=== PATIENT | male | born 2000 | race Caucasian/White ===

== ENCOUNTER 2019-03-19 06:13 | Emergency (ER) | payer SELFPAY ==
[~2019-03-19] VITALS: Ht 170.2 cm; Wt 54.4 kg
[2019-03-19 07:09] LABS: HEMATOCRIT 41 % (40-54); HEMOGLOBIN 14.5 G/DL (13.3-17.7); MEAN CORPUSCULAR HEMOGLOBIN 31 PG (25-34); MEAN CORPUSCULAR HGB CONC 35 G/DL (32-36); MEAN CORPUSCULAR VOLUME 87 FL (80-99); MEAN PLATELET VOLUME 10.9 FL (7.4-10.4); PLATELET COUNT 230 10^3/uL (130-400); RED CELL DISTRIBUTION WIDTH 12.5 % (10.0-14.5); WHITE BLOOD COUNT 6.7 10^3/uL (4.3-11.0)
[2019-03-19 07:10] LABS: BASOPHILS % (AUTO) 0 % (0-10); EOSINOPHILS # (AUTO) 0.1 10^3/uL (0.0-0.3); EOSINOPHILS % (AUTO) 2 % (0-10); LYMPHOCYTES # (AUTO) 2.1 X 10^3 (1.0-4.0); LYMPHOCYTES % (AUTO) 31 % (12-44); MONOCYTES # (AUTO) 0.7 X 10^3 (0.0-1.0); MONOCYTES % (AUTO) 10 % (0-12); NEUTROPHILS # (AUTO) 3.8 X 10^3 (1.8-7.8); NEUTROPHILS % (AUTO) 57 % (42-75)
--- NOTE | 2019-03-19 07:19 | ED Cardiac General ---
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 At 1800 yesterday, he states he went to the ER in [place] d/t "not feeling right." Patient states the physician informed him that his potassium was low and advised him not to take any more caffeine pills, then discharged him to home. He states he got home from work around 0430 and was attempting to go to sleep when his chest became tight. Source: patient, family Exam Limitations: no limitations History of Present Illness Date Seen by Provider: Mar 19, 2019 Time Seen by Provider: 06:45 Initial Comments Patient is a 18-year-old male presents with episodic left-sided chest pain draining to left shoulder. Symptoms began last evening while in bed. Comfort is described as tightness and loss less than 2 minutes with multiple episodes per hour. Episodes are not sure associated with nausea, shortness of breath, or abdominal pain. No vomiting, hematemesis, or coffee-ground emesis. Patient states he took 1200 mg of caffeine earlier in yesterday afternoon. He developed palpitations and was seen at outside emergency department where he had basic labs, EKG and imaging studies performed. Patient states that he was told his potassium was low. He was given a GI cocktail and his potassium was replaced and he was discharged home at that time. Patient denies drugs or alcohol since discharge. He states he has not taken any additional caffeine pills. No other acute symptoms or complaints. Timing/Duration: 1-3 hours Severity: mild Location: substernal, other Activities at Onset: none NTG SL MANAGER CULINARY: No ASA po MANAGER CULINARY: No Associated Systoms: Chest Pain Allergies and Home Medications Allergies Coded Allergies: No Known Drug Allergies (Unverified , 03/19/19) Home Medications Famotidine 20 Mg Tablet, 20 MG PO BID Prescribed by: EVANGELINA ADAMSON on 03/19/19 7079 Patient Home Medication List Home Medication List Reviewed: Yes Review of Systems Review of Systems Constitutional: see HPI EENTM: See HPI Respiratory: See HPI Cardiovascular: See HPI Gastrointestinal: See HPI Genitourinary: See HPI Musculoskeletal: see HPI Skin: see HPI Psychiatric/Neurological: See HPI Endocrine: See HPI Hematologic/Lymphatic: See HPI Past Mndultr-Ekejhu-Vekpjx Hx Past Med/Social Hx: Reviewed Nursing Past Med/Soc Hx Patient Social History Alcohol Use: Occasionally Uses Recreational Drug Use: Yes (pt states last marijuana use 03/17/19) Drug of Choice: marijuana, methamphetamines Smoking Status: Current Everyday Smoker Type Used: Cigarettes 2nd Hand Smoke Exposure: No Recent Foreign Travel: No Contact w/Someone Who Travel: No Recent Infectious Disease Expo: No Recent Hopitalizations: No Physical Abuse: No Sexual Abuse: No Mistreated: No Fear: No Seasonal Allergies Seasonal Allergies: No Past Medical History Surgeries: No Respiratory: No Cardiac: No Neurological: No Genitourinary: No Gastrointestinal: No Musculoskeletal: No Endocrine: No HEENT: No Cancer: No Psychosocial: No Integumentary: No Blood Disorders: No Physical Exam Vital Signs Vital Signs - First Documented 03/19/19 06:26 Temp 98.7 Pulse 67 Resp 16 B/P (MAP) 115/59 (77) Pulse Ox 98 O2 Delivery Room Air Capillary Refill : Less Than 3 Seconds Height, Weight, BMI Height: 5'7.00" Weight: 120lbs. oz. 54.796062jp; BMI Method:Stated General Appearance: No Apparent Distress, WD/WN HEENT: PERRL/EOMI, Normal ENT Inspection, Pharynx Normal, Moist Mucous Membranes Neck: Full Range of Motion, Normal Inspection Respiratory: Chest Non Tender, Lungs Clear, Normal Breath Sounds Cardiovascular: Regular Rate, Rhythm, No Edema, No Murmur Gastrointestinal: Normal Bowel Sounds, No Organomegaly, Non Tender Extremity: Normal Capillary Refill, Normal Inspection Neurologic/Psychiatric: Alert, Oriented x3, No Motor/Sensory Deficits, Normal Mood/Affect Skin: Normal Color, Warm/Dry Focused Exam Sepsis Stage: Ruled Out Progress/Results/Core Measures Results/Orders Lab Results Laboratory Tests Test 03/19/19 06:28 Range/Units White Blood Count 6.7 4.3-11.0 10^3/uL Red Blood Count 4.72 4.35-5.85 10^6/uL Hemoglobin 14.5 13.3-17.7 G/DL Hematocrit 41 40-54 % Mean Corpuscular Volume 87 80-99 FL Mean Corpuscular Hemoglobin 31 25-34 PG Mean Corpuscular Hemoglobin Concent 35 32-36 G/DL Red Cell Distribution Width 12.5 10.0-14.5 % Platelet Count 230 130-400 10^3/uL Mean Platelet Volume 10.9 H 7.4-10.4 FL Neutrophils (%) (Auto) 57 42-75 % Lymphocytes (%) (Auto) 31 12-44 % Monocytes (%) (Auto) 10 0-12 % Eosinophils (%) (Auto) 2 0-10 % Basophils (%) (Auto) 0 0-10 % Neutrophils # (Auto) 3.8 1.8-7.8 X 10^3 Lymphocytes # (Auto) 2.1 1.0-4.0 X 10^3 Monocytes # (Auto) 0.7 0.0-1.0 X 10^3 Eosinophils # (Auto) 0.1 0.0-0.3 10^3/uL Basophils # (Auto) 0.0 0.0-0.1 10^3/uL Sodium Level 142 135-145 MMOL/L Potassium Level 3.5 L 3.6-5.0 MMOL/L Chloride Level 105 98-107 MMOL/L Carbon Dioxide Level 17 L 21-32 MMOL/L Anion Gap 20 H 5-14 MMOL/L Blood Urea Nitrogen 10 7-18 MG/DL Creatinine 0.93 0.60-1.30 MG/DL Estimat Glomerular Filtration Rate > 60 BUN/Creatinine Ratio 11 Glucose Level 124 H 70-105 MG/DL Calcium Level 9.1 8.5-10.1 MG/DL Troponin T < 6 <=15 NG/L My Orders Orders - EVANGELINA ADAMSON DO Ekg Tracing (03/19/19 06:21) Troponin T (03/19/19 06:21) Basic Metabolic Panel (03/19/19 06:21) Cbc With Automated Diff (03/19/19 06:21) Famotidine Tablet (Pepcid Tablet) (03/19/19 07:15) Vital Signs/I&O 03/19/19 03/19/19 03/19/19 06:26 06:26 07:35 Temp 98.7 98.7 Pulse 67 56 Resp 16 16 B/P (MAP) 115/59 (77) 97/59 (72) Pulse Ox 98 97 O2 Delivery Room Air Room Air Room Air Blood Pressure Mean: 77 Departure Communication (Admissions) EKG reviewed, normal sinus rhythm, rate 60. No acute ST-T wave changes. Patient's nighttime symptoms likely related to gastritis/esophagitis secondary to excessive caffeine use. Basic labs, reviewed. Patient given Pepcid. We'll treat with antacid with instructions to avoid caffeine and spicy foods. PCP follow-up recommended. Return precautions reviewed. Impression Primary Impression: Chest pain Additional Impression: Gastroesophageal reflux disease Disposition: HOME, SELF-CARE Condition: Stable Departure-Patient Inst. Referrals: NO,LOCAL PHYSICIAN (PCP) Primary Care Physician Patient Instructions: Acid Reflux (Gastroesophageal Reflux Disease) in Adults, Chest Pain That Is Not Caused by the Heart (DC) Add. Discharge Instructions: Please avoid future caffeine and spicy foods. Take antacids twice daily and follow-up with your PCP in 3-5 days for reevaluation. Return to ED if new or worsening symptoms. All discharge instructions reviewed with patient and/or family. Voiced understanding. Scripts Famotidine (Pepcid) 20 Mg Tablet 20 MG PO BID, #60 TAB Prov: EVANGELINA ADAMSON DO 03/19/19 EVANGELINA ADAMSON DO Mar 19, 2019 07:19
[2019-03-19] MEDS ORDERED: FAMO-119 PO (07:21)
[2019-03-19] MEDS: FAMOTIDINE 20 MG (PEPCID) TABLET PO ONE (07:22)
--- NOTE | 2019-03-19 07:22 | NUR ---
Medication given per eMAR. Pt's family ask, "He needs a sandwich and banana as he hasn't ate yet." Family notified of no sandwich/banana availability.
[2019-03-19 07:32] LABS: CHLORIDE 105 MMOL/L (98-107); POTASSIUM 3.5 MMOL/L (3.6-5.0); SODIUM 142 MMOL/L (135-145)
[2019-03-19 07:33] LABS: BUN/CREATININE RATIO 11; CALCIUM 9.1 MG/DL (8.5-10.1); CARBON DIOXIDE 17 MMOL/L (21-32); CREATININE SERUM 0.93 MG/DL (0.60-1.30); GFR ESTIMATED > 60; GLUCOSE 124 MG/DL (70-105)
[2019-03-19 07:35] VITALS: BP 97/59
--- NOTE | 2019-03-19 07:35 | NUR ---
Pt discharged at this time and looked away during all of education reviewed. Family talking and discussing weather. Limited/fair acknowledgement of instructions.
== END 2019-03-19 07:35 | disposition home or self-care (01) ==
LOC: ER FS 06:15
DX: R07.81 Pleurodynia (principal); K21.9 Gastro-esophageal reflux disease without esophagitis; F12.10 Cannabis abuse, uncomplicated; F15.10 Other stimulant abuse, uncomplicated; F17.210 Nicotine dependence, cigarettes, uncomplicated
CPT/HCPCS: 36415; 80048; 84484; 85025; 93005

== ENCOUNTER 2019-03-19 21:12 | Emergency (ER) | payer SELFPAY ==
[~2019-03-19] VITALS: Ht 170.2 cm; Wt 54.4 kg
[~2019-03-19 21:12] MED LIST: FAMO-119 PO
--- NOTE | 2019-03-19 21:28 | ED Psychosocial ---
General Chief Complaint: Suicidal Ideation Risk Stated Complaint: SUICIDE ATTEMPT Source: patient Exam Limitations: no limitations History of Present Illness Date Seen by Provider: Mar 19, 2019 Time Seen by Provider: 21:15 Initial Comments This is a 18 y/o m who presents to the ED for evaluation after SI attempt. Pt reports history of depression/intermittent SI for the past 2 years. Is not on any medications. Denies any recent trigger event. At approx 1930 took Baclofen 10mg #10. Also cut his Left forearm. Had approx 100cc of blood on scene. Placed a shoelace tourniquet and had some decreased peripheral perfusion on EMS evaluation that resolved after tourniquet removal. Pt denies any pain. States last tdap approx 1 year ago. States that this was a suicide attempt. Allergies and Home Medications Allergies Coded Allergies: No Known Drug Allergies (Unverified , 03/19/19) Home Medications Famotidine 20 Mg Tablet, 20 MG PO BID Prescribed by: EVANGELINA ADAMSON on 03/19/19 7142 Patient Home Medication List Home Medication List Reviewed: Yes Review of Systems Constitutional: No chills, No fever, No weakness EENTM: No blurred vision, No double vision, No eye pain Respiratory: No cough, No short of breath, No wheezing Cardiovascular: No chest pain, No edema, No palpitations Gastrointestinal: No abdominal pain, No diarrhea, No nausea, No vomiting Musculoskeletal: No muscle pain, No muscle cramps, No muscle weakness Skin: other (laceration) Psychiatric/Neurological: Anxiety, Depressed, Emotional Problems; Denies Headache, Denies Numbness, Denies Seizure, Denies Tingling, Denies Tremors, Denies Weakness Past Pqjwedp-Rzgxxx-Wyrfit Hx Patient Social History Drug of Choice: marijuana, methamphetamines Type Used: Cigarettes 2nd Hand Smoke Exposure: No Recent Foreign Travel: No Contact w/Someone Who Travel: No Recent Hopitalizations: No Seasonal Allergies Seasonal Allergies: No Past Medical History Surgeries: No Respiratory: No Cardiac: No Neurological: No Genitourinary: No Gastrointestinal: No Musculoskeletal: No Endocrine: No HEENT: No Cancer: No Psychosocial: No Integumentary: No Blood Disorders: No Physical Exam Vital Signs - First Documented 03/19/19 21:23 Temp 99.2 Pulse 87 Resp 12 B/P (MAP) 123/72 (89) Pulse Ox 100 O2 Delivery Room Air Capillary Refill : Height, Weight, BMI Height: 5'7.00" Weight: 120lbs. oz. 54.164866cr; BMI Method:Stated General Appearance: WD/WN, thin HEENT: PERRL/EOMI Neck: full range of motion, normal inspection Respiratory: normal breath sounds, no respiratory distress, no accessory muscle use Cardiovascular: regular rate, rhythm, no edema, no gallop Gastrointestinal: normal bowel sounds, non tender, soft Extremities: normal range of motion, normal capillary refill, other (LUE with skin exam as below. Pt has intact ROM of L elbow/wrist/hand. Curator Herbarium strength is 5/ 5. Radial pulse is +2/4. pt is able to perform peace sign, a-okay sign, and thumbs up sign. Intact sensation to hand. ) Neurologic/Psychiatric: alert, oriented x 3 Appearance/Memory: disheveled Behavior/Eye Contact: belligerent Thoughts/Hallucinations: no apparent hallucination Skin: other (4 cm laceration to dorsum of L forearm. Hemostatic ) Procedures/Interventions Wound Location: Upper Extremities Other Wound Location Left dorsal forearm. Wound's Depth, Shape: superficial Wound Explored: no foreign body removed Anesthesia: Lidocaine w/ Epi Wound Debrided: moderate Suture: Ethlion (#5) Suture Size: 6-0 Number of Sutures: 5 Progress/Results/Core Measures Results/Orders Lab Results Laboratory Tests Test 03/19/19 21:45 03/19/19 22:10 Range/Units Urine Opiates Screen NEGATIVE NEGATIVE Urine Oxycodone Screen NEGATIVE NEGATIVE Urine Methadone Screen NEGATIVE NEGATIVE Urine Propoxyphene Screen NEGATIVE NEGATIVE Urine Barbiturates Screen NEGATIVE NEGATIVE Ur Tricyclic Antidepressants Screen NEGATIVE NEGATIVE Urine Phencyclidine Screen NEGATIVE NEGATIVE Urine Amphetamines Screen NEGATIVE NEGATIVE Urine Methamphetamines Screen NEGATIVE NEGATIVE Urine Benzodiazepines Screen POSITIVE H NEGATIVE Urine Cocaine Screen NEGATIVE NEGATIVE Urine Cannabinoids Screen POSITIVE H NEGATIVE White Blood Count 12.2 H 4.3-11.0 10^3/uL Red Blood Count 4.60 4.35-5.85 10^6/uL Hemoglobin 14.1 13.3-17.7 G/DL Hematocrit 41 40-54 % Mean Corpuscular Volume 88 80-99 FL Mean Corpuscular Hemoglobin 31 25-34 PG Mean Corpuscular Hemoglobin Concent 35 32-36 G/DL Red Cell Distribution Width 12.9 10.0-14.5 % Platelet Count 239 130-400 10^3/uL Mean Platelet Volume 10.4 7.4-10.4 FL Neutrophils (%) (Auto) 80 H 42-75 % Lymphocytes (%) (Auto) 14 12-44 % Monocytes (%) (Auto) 5 0-12 % Eosinophils (%) (Auto) 1 0-10 % Basophils (%) (Auto) 0 0-10 % Neutrophils # (Auto) 9.8 H 1.8-7.8 X 10^3 Lymphocytes # (Auto) 1.8 1.0-4.0 X 10^3 Monocytes # (Auto) 0.6 0.0-1.0 X 10^3 Eosinophils # (Auto) 0.1 0.0-0.3 10^3/uL Basophils # (Auto) 0.0 0.0-0.1 10^3/uL Neutrophils % (Manual) 78 % Lymphocytes % (Manual) 12 % Monocytes % (Manual) 5 % Eosinophils % (Manual) 1 % Band Neutrophils 4 % Sodium Level 141 135-145 MMOL/L Potassium Level 4.1 3.6-5.0 MMOL/L Chloride Level 105 98-107 MMOL/L Carbon Dioxide Level 20 L 21-32 MMOL/L Anion Gap 16 H 5-14 MMOL/L Blood Urea Nitrogen 14 7-18 MG/DL Creatinine 1.05 0.60-1.30 MG/DL Estimat Glomerular Filtration Rate > 60 BUN/Creatinine Ratio 13 Glucose Level 110 H 70-105 MG/DL Calcium Level 8.9 8.5-10.1 MG/DL Corrected Calcium 8.5-10.1 MG/DL Total Bilirubin 0.2 0.1-1.0 MG/DL Aspartate Amino Transf (AST/SGOT) 20 5-34 U/L Alanine Aminotransferase (ALT/SGPT) 12 0-55 U/L Alkaline Phosphatase 74 40-136 U/L Total Protein 7.1 6.4-8.2 GM/DL Albumin 4.7 H 3.2-4.5 GM/DL Salicylates Level < 0.3 L 5.0-20.0 MG/DL Acetaminophen Level < 10 L 10-30 UG/ML Serum Alcohol < 10 <10 MG/DL My Orders Orders - SCOTT CAMPA DO Acetaminophen (03/19/19 21:21) Alcohol (03/19/19 21:21) Cbc And Manual Diff (03/19/19 21:21) Comprehensive Metabolic Panel (03/19/19 21:21) Drug Screen Stat (Urine) (03/19/19 21:21) Salicylate (03/19/19 21:21) Ekg Tracing (03/19/19 21:21) Let Solution (Let Solution) (03/19/19 21:30) Medications Given in ED Current Medications Medications Dose Ordered Sig/Aron Route Start Time Stop Time Status Last Admin Dose Admin Tetracaine/ Epinephrine/ Lidocaine 1 ea ONCE ONCE TOP 03/19/19 21:30 03/19/19 21:31 DC 03/19/19 21:53 1 EA Vital Signs/I&O 03/19/19 03/19/19 03/20/19 21:23 23:35 00:28 Temp 99.2 98.4 Pulse 87 58 52 Resp 12 24 20 B/P (MAP) 123/72 (89) 103/67 (79) 117/68 (84) Pulse Ox 100 99 100 O2 Delivery Room Air Room Air Progress Progress Note : Time: 21:27 Progress Note Discussed with Poison Control. 6hrs of observation. 2302: Pt now drowsy. Rouses with repetitive tactile stimuli and states name but unable to stay awake long enough to converse. Will not be able to medically clear from ER and will require longer to metabolize the Baclofen before he can have a Psych eval. No beds available at [facility]. Case discussed with Dr. Hollis and [facility] in [place] who is agreeable to accept the pt. He is protecting his airway. He is not requiring supplemental O2. He is hemodynamically stable. Initial ECG Impression Date: Mar 19, 2019 Initial ECG Impression Time: 21:47 Comment NSR< HR 70, no acute ST segment changes Departure Impression Primary Impression: Depression Additional Impressions: Suicide by drug overdose Baclofen overdose Disposition: 02 XFER SHT-TRM HOSP Condition: Stable Transfer Time Spoke to Accepting Phy: 23:03 Transfer Progress Notes Delay in bed assignment from accepting facility. Pt being transferred at this time. He has continued to have stable vital signs. He continues to rouse with repetitive tactile stimuli and is able to state name before falling back asleep. He has not required any oxygen or airway support. Transfer Time: 01:08 Departure-Patient Inst. Referrals: NO,LOCAL PHYSICIAN (PCP/Family) Primary Care Physician SCOTT CAMPA DO Mar 19, 2019 21:28
[2019-03-19] MEDS ORDERED: L.E.T. SYRINGE 5 ML TOP ONE (21:30)
--- NOTE | 2019-03-19 22:00 | NUR ---
Poison control was contacted by Dr. Cho.
[2019-03-19 23:03] LABS: BASOPHILS % (AUTO) 0 % (0-10); EOSINOPHILS # (AUTO) 0.1 10^3/uL (0.0-0.3); EOSINOPHILS % (AUTO) 1 % (0-10); HEMATOCRIT 41 % (40-54); HEMOGLOBIN 14.1 G/DL (13.3-17.7); LYMPHOCYTES # (AUTO) 1.8 X 10^3 (1.0-4.0); LYMPHOCYTES % (AUTO) 14 % (12-44); MEAN CORPUSCULAR HEMOGLOBIN 31 PG (25-34); MEAN CORPUSCULAR HGB CONC 35 G/DL (32-36); MEAN CORPUSCULAR VOLUME 88 FL (80-99); MEAN PLATELET VOLUME 10.4 FL (7.4-10.4); MONOCYTES # (AUTO) 0.6 X 10^3 (0.0-1.0); MONOCYTES % (AUTO) 5 % (0-12); NEUTROPHILS # (AUTO) 9.8 X 10^3 (1.8-7.8); NEUTROPHILS % (AUTO) 80 % (42-75); PLATELET COUNT 239 10^3/uL (130-400); RED CELL DISTRIBUTION WIDTH 12.9 % (10.0-14.5); WHITE BLOOD COUNT 12.2 10^3/uL (4.3-11.0)
[2019-03-19 23:04] LABS: BAND NEUTROPHILS 4 %; EOSINOPHILS % (MANUAL) 1 %; LYMPHOCYTES % (MANUAL) 12 %; MONOCYTES % (MANUAL) 5 %; NEUTROPHILS % (MANUAL) 78 %
[2019-03-19 23:04] LABS: CANNABINOID SCREEN, URINE POSITIVE (NEGATIVE)
[2019-03-19 23:05] LABS: AMPHETAMINE SCREEN, URINE NEGATIVE (NEGATIVE); BARBITURATE SCREEN URINE NEGATIVE (NEGATIVE); BENZODIAZEPINES SCREEN URINE POSITIVE (NEGATIVE); COCAINE SCREEN URINE NEGATIVE (NEGATIVE); METHADONE STAT NEGATIVE (NEGATIVE); METHAMPHETAMINE SCREEN URINE S NEGATIVE (NEGATIVE); OPIATE SCREEN URINE NEGATIVE (NEGATIVE); OXYCODONE STAT NEGATIVE (NEGATIVE); PROPOXYPHENE STAT NEGATIVE (NEGATIVE); TRICYCLIC ANTIDEPRESSANTS SCRE NEGATIVE (NEGATIVE)
[2019-03-19 23:06] LABS: ALANINE AMINOTRANSFERASE 12 U/L (0-55); ALBUMIN 4.7 GM/DL (3.2-4.5); BILIRUBIN,TOTAL 0.2 MG/DL (0.1-1.0); BUN/CREATININE RATIO 13; CALCIUM 8.9 MG/DL (8.5-10.1); CARBON DIOXIDE 20 MMOL/L (21-32); CHLORIDE 105 MMOL/L (98-107); CREATININE SERUM 1.05 MG/DL (0.60-1.30); GFR ESTIMATED > 60; GLUCOSE 110 MG/DL (70-105); POTASSIUM 4.1 MMOL/L (3.6-5.0); SODIUM 141 MMOL/L (135-145); TOTAL PROTEIN 7.1 GM/DL (6.4-8.2)
[2019-03-19 23:07] LABS: ACETAMINOPHEN < 10 UG/ML (10-30); ALKALINE PHOSPHATASE 74 U/L (40-136); SALICYLATE < 0.3 MG/DL (5.0-20.0)
[2019-03-19 23:35] VITALS: BP 103/67
--- NOTE | 2019-03-19 23:36 | NUR ---
safety assessment unable to be complete, because patient is passed out.
--- NOTE | 2019-03-20 00:04 | NUR ---
Called [facility] about bed and they stated they are working on it now and will call when they have bed number.
[2019-03-20 00:28] VITALS: BP 117/68
[2019-03-20 00:59] VITALS: BP 111/73
== END 2019-03-20 01:26 | disposition short-term general hospital (02) ==
LOC: EDUNIT# 21:12 → ER FS 21:14
DX: T42.8X2A Poisoning by antiparkinsonism drugs and other central muscle-tone depressants, intentional self-harm, initial encounter (principal); S51.812A Laceration without foreign body of left forearm, initial encounter; F32.9 Major depressive disorder, single episode, unspecified; W26.8XXA Contact with other sharp object(s), not elsewhere classified, initial encounter
CPT/HCPCS: 36415; 80053; 80306; 80320; 80329; 85007; 85027; 93005

== ENCOUNTER 2019-12-20 09:09 | Emergency (ER) | payer SELFPAY ==
[~2019-12-20] VITALS: Ht 170.1 cm; Wt 59.3 kg
--- NOTE | 2019-12-20 09:29 | ED General ---
General Chief Complaint: Cough/Cold/Flu Symptoms Stated Complaint: FEVER 101-102 X6 DAYS Source of Information: Patient Exam Limitations: No Limitations History of Present Illness Date Seen by Provider: Dec 20, 2019 Time Seen by Provider: 09:18 Initial Comments The patient is a 19-year-old male presents for evaluation of approximately 5 days of fever and cough. He reports a history of tobacco, marijuana, and methamphetamine abuse. Additionally he is complaining of generalized body aches, coughing leading to gagging and dry heaving, and general malaise. He denies neck stiffness or pain, vomiting, back or flank pain, urinary complaints, rash, vision changes, confusion, recent travel, dizziness or syncope. He did not get his influenza vaccination this season. He denies any past medical history. Timing/Duration: 4-5 Days Severity: Moderate Modifying Factors: improves with Medication (Tylenol and ibuprofen with little relief) Associated Systoms: Cough, Fever/Chills, Malaise, Nausea/Vomiting (some nausea but no vomiting) Allergies and Home Medications Allergies Coded Allergies: No Known Drug Allergies (Unverified , 03/19/19) Home Medications No Active Prescriptions or Reported Meds Patient Home Medication List Home Medication List Reviewed: Yes Review of Systems Review of Systems Constitutional: fever, malaise EENTM: no symptoms reported Respiratory: cough Cardiovascular: no symptoms reported Gastrointestinal: nausea Genitourinary: no symptoms reported Musculoskeletal: no symptoms reported Skin: no symptoms reported Psychiatric/Neurological: No Symptoms Reported Hematologic/Lymphatic: No Symptoms Reported Immunological/Allergic: no symptoms reported All Other Systems Reviewed Negative Unless Noted: Yes Past Qceocni-Wwheau-Boasyg Hx Past Med/Social Hx: Reviewed Nursing Past Med/Soc Hx Patient Social History Drug of Choice: marijuana, methamphetamines Type Used: Cigarettes 2nd Hand Smoke Exposure: No Recent Foreign Travel: No Contact w/Someone Who Travel: No Recent Hopitalizations: No Seasonal Allergies Seasonal Allergies: No Past Medical History Surgeries: No Respiratory: No Cardiac: No Neurological: No Genitourinary: No Gastrointestinal: No Musculoskeletal: No Endocrine: No HEENT: No Cancer: No Psychosocial: No Integumentary: No Blood Disorders: No Physical Exam Vital Signs Vital Signs - First Documented Capillary Refill : Height, Weight, BMI Height: 5'7.00" Weight: 120lbs. 0oz. 54.948806cl; BMI Method:Stated General Appearance: No Apparent Distress, WD/WN Eyes: Bilateral Eye Normal Inspection, Bilateral Eye PERRL, Bilateral Eye EOMI HEENT: PERRL/EOMI, Normal ENT Inspection, Pharynx Normal Neck: Full Range of Motion, Non Tender, Supple Respiratory: Chest Non Tender, Lungs Clear, No Accessory Muscle Use, No Respiratory Distress, Wheezing (scattered, mild) Cardiovascular: No Edema, No Murmur, Normal Peripheral Pulses, Tachycardia Gastrointestinal: Normal Bowel Sounds, No Pulsatile Mass, Non Tender, Soft Back: No CVA Tenderness, No Vertebral Tenderness Extremity: Normal Capillary Refill, Normal Inspection, Non Tender Neurologic/Psychiatric: Alert, Oriented x3, No Motor/Sensory Deficits, Normal Mood/Affect Skin: Normal Color, Warm/Dry Procedures/Interventions Suture Size: 6-0 Progress/Results/Core Measures Suspected Sepsis SIRS Temperature: Pulse: Respiratory Rate: Blood Pressure / Mean: Results/Orders Micro Results Microbiology 12/20/19 Influenza Types A,B Antigen (CATY) - Final, Complete My Orders Orders - KAN PEGUERO DO Influenza A And B Antigens (12/20/19 09:23) Chest Pa/Lat (2 View) (12/20/19 09:23) Albuterol/Ipra Inhalation Soln (Duoneb I (12/20/19 09:30) Svn Small Volume Nebulizer (12/20/19 09:30) Medications Given in ED Current Medications Medications Dose Ordered Sig/Aron Route Start Time Stop Time Status Last Admin Dose Admin Albuterol/ Ipratropium 3 ml ONCE ONCE INH 12/20/19 09:30 12/20/19 09:31 DC 12/20/19 09:40 3 ML Vital Signs/I&O 12/20/19 12/20/19 09:15 09:15 Temp 37.6 Pulse 95 Resp 18 B/P (MAP) 134/65 (88) Pulse Ox 97 O2 Delivery Room Air Room Air Capillary Refill : Progress Note : Progress Note @1000 - Patient informed of positive influenza A result. Chest x-ray is unremarkable. The patient is not a candidate for Tamiflu as his symptoms have been going on for greater than 5 days. Advised Tylenol or ibuprofen at home for fever and/or pain relief. Advised wearing a mask at home to prevent spread into avoid work until fever free for at least 24 hours. Advised follow-up with PCP in the next 1-2 days and return to the Emergency Department immediately for new or worsening symptoms. The patient's is saturating 97% on room air and is not in respiratory distress. Diagnostic Imaging Diagonstic Imaging: Xray [facility] [place], [place] NAME: AVE [address]ANG MED REC#: [id number] PT STATUS: REG ER : 2000 PHYSICIAN: KAN PEGUERO DO ADMIT DATE: 12/20/19/ER FS Draft Date of Exam:12/20/19 CHEST PA/LAT (2 VIEW) PA and lateral chest at 926 hours. INDICATION: Cough, fever. There are no prior studies available for comparison. FINDINGS: The heart size is within normal limits. There are few carotid bronchovascular markings in the right infrahilar region but there is no evidence for pneumonia or for pleural effusion. The mediastinum is not widened. The osseous structures are intact. IMPRESSION: There is no evidence for an acute cardiopulmonary abnormality. Dictated on workstation # [id number] Dict: 12/20/19 0934 Trans: 12/20/19 0937 [id number] Interpreted by: ADRI NICOLAS MD Electronically signed by: Departure Impression Primary Impression: Influenza A Disposition: HOME, SELF-CARE Condition: Stable Departure-Patient Inst. Decision time for Depature: 10:03 Referrals: NO,LOCAL PHYSICIAN (PCP) Primary Care Physician [facility] Patient Instructions: Flu, Adult (DC) Add. Discharge Instructions: You have influenza A ("the flu") which is very contagious. Do not return to work until you are fever free for at least 24 hours. Unfortunately, because her symptoms have been going on for greater than 3 days, the medication which is normally given for the flu, called Tamiflu, would not help you. It is important to stay well hydrated by drinking plenty of water. Return to the emergency Department immediately for new or worsening symptoms. Take Tylenol and/or ibuprofen at home for fever and pain relief. Follow-up with your primary care provider in the next 1-2 days. If you have to leave your home please were a mask to prevent the spread of infection to others. Scripts No Active Prescriptions or Reported Meds KAN PEGUERO DO Dec 20, 2019 09:29
[2019-12-20] MEDS ORDERED: RT-ALBUTEROL/IPRATROPIUM 3 ML (DUONEB) VIAL INH ONE (09:30)
--- NOTE | 2019-12-20 09:37 | Diagnostic Imaging Report ---
PA and lateral chest at 926 hours. INDICATION: Cough, fever. There are no prior studies available for comparison. FINDINGS: The heart size is within normal limits. There are few carotid bronchovascular markings in the right infrahilar region but there is no evidence for pneumonia or for pleural effusion. The mediastinum is not widened. The osseous structures are intact. IMPRESSION: There is no evidence for an acute cardiopulmonary abnormality. Dictated by: Dictated on workstation # [id number]
[2019-12-20 10:23] VITALS: BP 120/63
== END 2019-12-20 10:23 | disposition home or self-care (01) ==
LOC: EDUNIT# 09:09 → ER FS 09:11
DX: J10.1 Influenza due to other identified influenza virus with other respiratory manifestations (principal)
CPT/HCPCS: 71046; 87804; 94640

== ENCOUNTER 2020-05-06 14:54 | Emergency (ER) | payer SELFPAY ==
[~2020-05-06] VITALS: Ht 170.1 cm; Wt 57.4 kg
[2020-05-06 14:59] VITALS: BP 117/70
[2020-05-06] MEDS ORDERED: AMOXICILLIN 500 MG (POLYMOX) CAP PO STA (15:30)
[2020-05-06] MEDS ORDERED: KETOROLAC 60 MG/2 ML VIAL IM ONE (15:30)
[2020-05-06] MEDS ORDERED: ACETAMINOPHEN 500 MG TAB (TYLENOL) PO ONE (15:30)
[2020-05-06] MEDS ORDERED: LIDOCAINE/EPI 2% 1:100,00 (XYLOCAINE) 20 ML VIAL INJ ONE (15:30)
[2020-05-06] MEDS ORDERED: BUPIVACAINE 0.5% 30 ML (SENSORCAINE) VIAL INJ ONE (15:30)
--- NOTE | 2020-05-06 15:41 | ED EENT ---
History of Present Illness General Chief Complaint: Dental Problems/Pain Stated Complaint: DENTAL PAIN Nursing Triage Note: Pt presents to ED reporting dental pain onand off for 2 yrs. Pt reports he has a broken posterior left lower molar. Used Ibuprofen 800 mg at 0300. History of Present Illness Date Seen by Provider: May 06, 2020 Time Seen by Provider: 15:10 Initial Comments The patient is a 19-year-old male who is otherwise healthy. He presents for evaluation of acute on chronic left mandibular dental discomfort. He reports that over the past few weeks he has had persistent pain in association with a necrotic left posterior maxillary molar as well as a partially erupted left mandibular wisdom tooth which is also necrotic. He reports that last week he went to the walk-in clinic where they prescribed some ibuprofen which has not been very helpful. He has not had the opportunity to follow up with a dentist. He denies fevers, nausea or vomiting, trismus, trouble with secretions, change in voice, difficulty breathing or swallowing, pain or swelling to the floor of the mouth or elevation of the tongue, shortness of breath. Patient is alert and pleasantly and appropriately interactive and in absolutely no acute distress upo n initial assessment here in the emergency department. Last ibuprofen was at 3 AM per patient. Allergies and Home Medications Allergies Coded Allergies: No Known Drug Allergies (Unverified , 03/19/19) Home Medications No Active Prescriptions or Reported Meds Patient Home Medication List Home Medication List Reviewed: Yes Review of Systems Review of Systems Constitutional: see HPI All Other Systems Reviewed Negative Unless Noted: Yes (Negative excepted noted.) Past Udukfkd-Vatdfg-Aysrjm Hx Past Med/Social Hx: Reviewed Nursing Past Med/Soc Hx Patient Social History Alcohol Use: Occasionally Uses Number of Drinks Today: AA Alcohol Beverage of Choice: Beer Recreational Drug Use: Yes ("everything" while smirking) Drug of Choice: marijuana, methamphetamines Type Used: Cigarettes 2nd Hand Smoke Exposure: No Recent Foreign Travel: No Contact w/Someone Who Travel: No Recent Infectious Disease Expo: No Recent Hopitalizations: No Physical Abuse: No Sexual Abuse: No Mistreated: No Fear: No Immunizations Up To Date Tetanus Booster (TDap): Unknown Seasonal Allergies Seasonal Allergies: No Past Medical History Surgeries: No Respiratory: No Cardiac: No Neurological: No Genitourinary: No Gastrointestinal: Yes Gastroesophageal Reflux Musculoskeletal: No Endocrine: No HEENT: No Cancer: No Psychosocial: Yes Depression Integumentary: No Blood Disorders: No Family Medical History Reviewed Nursing Family Hx Physical Exam Vital Signs Vital Signs - First Documented 05/06/20 14:59 Temp 37.2 Pulse 117 Resp 20 B/P (MAP) 117/70 (86) Pulse Ox 100 O2 Delivery Room Air Height, Weight, BMI Height: 5'7.00" Weight: 120lbs. 0oz. 54.685678vb; 19.00 BMI Method:Stated General Appearance: no apparent distress This is a young male appearing nontoxic and in no acute distress. Head is normocephalic and atraumatic. Neck is supple and nontender. Oropharynx is moist. There is a necrotic and fractured left posterior mandibular molar just anterior to a partially erupted left mandibular wisdom tooth which is similarly necrotic. No significant associated gingival erythema and no fluctuance suggestive of periapical abscess. No trismus. No pain or swelling to the floor of the mouth or elevation of the tongue. No posterior oropharyngeal abnormality. Patient is tolerating secretions very well and speaking in a normal tone of voice. Lungs are clear to auscultation at all stations. There is a normal S1 and S2 without rubs or gallops and capillary refills appropriate, less than 2 seconds globally. Abdomen is soft, nontender and nondistended. Skin is warm and dry without cyanosis, clubbing or edema. Psychiatrically, the patient demonstrates appropriate mood and affect and is alert. Procedures/Interventions Dental Procedures: Suture Size: 6-0 Progress Left inferior alveolar nerve block completed in standard fashion with a 50-50 mixture of lidocaine and bupivacaine instilled about the inferior alveolar nerve. Patient tolerated the procedure well and had relief of pain. No complications. Progress/Results/Core Measures Results/Orders My Orders Orders - JENSEN REBOLLAR MD Ketorolac Injection (Toradol Injection) (05/06/20 15:30) Acetaminophen Tablet (Tylenol Tablet) (05/06/20 15:30) Amoxicillin Capsule (Polymox Capsule) (05/06/20 15:30) Lidocaine/Epi 2% 1:100,000 (Xylocaine/Ep (05/06/20 15:30) Bupivacaine 0.5% Injection (Sensorcaine (05/06/20 15:30) Vital Signs/I&O 05/06/20 14:59 Temp 37.2 Pulse 117 Resp 20 B/P (MAP) 117/70 (86) Pulse Ox 100 O2 Delivery Room Air Blood Pressure Mean: 86 Progress Progress Note : Time: 15:40 Progress Note 19-year-old male with acute on chronic dental pain in association with necrotic molars to the left mandible. Discussed options with the patient and he would like a dental block. We will provide analgesic medication and an antibiotic course and will refer him to [facility] dentistry for sliding scale services to definitively address the problem. Patient is in agreement with this plan of care. He understands that if he feels worse is that of better or develops other new symptoms of concern that he will need to return to the emergency department immediately for reevaluation. All questions are answered. Departure Impression Primary Impression: Dental decay Disposition: HOME, SELF-CARE Condition: Improved Departure-Patient Inst. Referrals: VALENTINE RAMIREZ MD Patient Instructions: Fractured Tooth (DC), Dental Pain, Tooth Decay, Adult Add. Discharge Instructions: We are referring you to [facility] dentistry for sliding scale services. Please go to the [facility] clinic front man as discussed to further explore this option. Your dental issues will not resolve until you have dental procedures completed by a dentist. Take the medication as prescribed for your symptoms. Take the antibiotic until the prescription is gone. Return to the emergency department right away with worsening symptoms or with any other new symptoms of concern. If [facility] dentistry does not work out, you may also explore [facility] in [place] as discussed for low cost dental care. Call during weekday business hours to explore this option for inexpensive dental care further. Scripts Naproxen (Naproxen) 500 Mg Tablet 500 MG PO Q12H for Pain, #30 TAB Prov: JENSEN REBOLLAR MD 05/06/20 Penicillin V Potassium (Penicillin V Potassium) 250 Mg Tablet 250 MG PO QID for 10 Days, #40 TAB Prov: JENSEN REBOLLAR MD 05/06/20 JENSEN REBOLLAR MD May 06, 2020 15:41
[2020-05-06] MEDS ORDERED: PENI250T2 PO (15:45)
[2020-05-06] MEDS ORDERED: NAPR-915 PO (15:45)
--- NOTE | 2020-05-06 15:45 | NUR ---
Pt given [facility] Financial Support paperwork obtained for him to fill out for dental appt request in [place]. The Dental Dept of [facility] in [place] report patient must file financial papers and proof of any income prior to obtaining an appt. [facility] Dental is planning on mailing forms to pt. Pt is to be advised the review takes 5-7 days. Pt looked at forms and reported that 2 weeks ago he filled out these papers and gave to [facility] and they were going to forward on to the [facility]. Pt was encouraged at discharge to walk into [facility] and ask them to investigate the current progress of his financial forms.
--- NOTE | 2020-05-06 15:55 | NUR ---
Patient discharged at this time after dental block completed and review of home instructions provided.
--- OUTSIDE RECORDS SUMMARY | 2020-05-06 19:14 | XMS REPORT | Continuity of Care Document ---
Author Organization Unknown Address Unknown Phone Unavailable Allergies Active Description Code Type Severity Reaction Onset Reported/Identified Relationship to Patient Clinical Status Yes No Known Drug Allergies [id number] Drug Allergy Unknown N/A 03/19/2019 Medications There is no data. Problems Date Dx Coded Attending Type Code Diagnosis Diagnosed By 03/19/2019 EVANGELINA ADAMSON DO, Ot F12.10 CANNABIS ABUSE, UNCOMPLICATED 03/19/2019 EVANGELINA ADAMSON DO, Ot F15.10 OTHER STIMULANT ABUSE, UNCOMPLICATED 03/19/2019 EVANGELINA ADAMSON DO, Ot F17.210 NICOTINE DEPENDENCE, CIGARETTES, UNCOMPL 03/19/2019 EVANGELINA ADAMSON DO, Ot K21.9 GASTRO-ESOPHAGEAL REFLUX DISEASE WITHOUT 03/19/2019 EVANGELINA ADAMSON DO, Ot R07.81 PLEURODYNIA 03/20/2019 ANUP CAMPA DOINA T Ot F32.9 MAJOR DEPRESSIVE DISORDER, SINGLE EPISOD 03/20/2019 SONNYITHYANELY MCCAIN SCOTT T Ot R45.851 SUICIDAL IDEATIONS 03/20/2019 ANUP CAMPA DOINA T Ot S51.812A LACERATION WITHOUT FOREIGN BODY OF LEFT 03/20/2019 ANUP CAMPA DOINA T Ot T42.8X2A POISN BY [facility] DRUG/[facility] 03/20/2019 KEANUP CRUZ DOINA T Ot W26.8XXA CONTACT WITH OTHER SHARP OBJECT(S), NEC, 03/21/2019 ANUP CAMPA DOINA T Ot F32.9 MAJOR DEPRESSIVE DISORDER, SINGLE EPISOD 03/21/2019 KEITHYANELY MCCAIN SCOTT T Ot R45.851 SUICIDAL IDEATIONS 03/21/2019 ANUP CAMPA DOINA T Ot S51.812A LACERATION WITHOUT FOREIGN BODY OF LEFT 03/21/2019 ANUP CAMPA DOINA T Ot T42.8X2A POISN BY [facility] DRUG/[facility] 03/21/2019 KE[place]UP [place] DOINA T Ot W26.8XXA CONTACT WITH OTHER SHARP OBJECT(S), NEC, 03/24/2019 EVANGELINA ADAMSON DO Ot F12.10 CANNABIS ABUSE, UNCOMPLICATED 03/24/2019 EVANGELINA ADAMSON DO Ot F15.10 OTHER STIMULANT ABUSE, UNCOMPLICATED 03/24/2019 EVANGELINA ADAMSON DO Ot F17.210 NICOTINE DEPENDENCE, CIGARETTES, UNCOMPL 03/24/2019 EVANGELINA ADAMSON DO Ot K21.9 GASTRO-ESOPHAGEAL REFLUX DISEASE WITHOUT 03/24/2019 EVANGELINA ADAMSON DO Ot R07.81 PLEURODYNIA 03/25/2019 SCOTT CAMPA DO Ot F32.9 MAJOR DEPRESSIVE DISORDER, SINGLE EPISOD 03/25/2019 SCOTT CAMPA DO Ot R45.851 SUICIDAL IDEATIONS 03/25/2019 SCOTT CAMPA DO Ot S51.812A LACERATION WITHOUT FOREIGN BODY OF LEFT 03/25/2019 SCOTT CAMPA DO Ot T42.8X2A POISN BY ANTIPARKNS DRUG/CENTR [facility] 03/25/2019 SCOTT CAMPA DO Ot W26.8XXA CONTACT WITH OTHER SHARP OBJECT(S), NEC, 12/20/2019 SUDHIR OMER DO Ot J10. 1 FLU DUE TO [facility] IDENT INFLUENZA VIRUS W O 12/20/2019 SUDHIR OMER DO Ot R50. 9 FEVER, UNSPECIFIED Procedures There is no data. Results Test Result Range Complete blood count (CBC) with automate d white blood cell (WBC) differential - 03/19/19 06:28 Blood leukocytes automated count (number/volume) 6.7 10*3/uL 4.3-11.0 Blood erythrocytes automated count (number/volume) 4.72 10*6/uL 4.35-5.85 Venous blood hemoglobin measurement (mass/volume) 14.5 g/dL 13.3-17.7 Blood hematocrit (volume fraction) 41 % 40-54 Automated erythrocyte mean corpuscular volume 87 [ foz_us] 80-99 Automated erythrocyte mean corpuscular h emoglobin (mass per erythrocyte) 31 pg 25-34 Automated erythrocyte mean corpuscular h emoglobin concentration measurement (mass/volume) 35 g/dL 32-36 Automated erythrocyte distribution width ratio 12. 5 % 10.0- 14.5 Automated blood platelet count (count/volume) 230 10*3/uL 130-400 Automated blood platelet mean volume measurement 10.9 [foz_us] 7.4-10.4 Automated blood neutrophils/100 leukocytes 57 % 42-75 Automated blood lymphocytes/100 leukocytes 31 % 12-44 Blood monocytes/100 leukocytes 10 % 0-12 Automated blood eosinophils/100 leukocytes 2 % 0-10 Automated blood basophils/100 leukocytes 0 % 0-10 Blood neutrophils automated count (number/volume) 3.8 10*3 1.8-7.8 Blood lymphocytes automated count (number/volume) 2.1 10*3 1.0-4.0 Blood monocytes automated count (number/volume) 0. 7 10*3 0.0-1.0 Automated eosinophil count 0.1 10*3/uL 0 .0-0.3 Automated blood basophil count (count/volume) 0.0 10*3/uL 0.0-0.1 Whole blood basic metabolic panel - 02/20 06:28 Serum or plasma sodium measurement (moles/volume) 142 mmol/L 135-145 Serum or plasma potassium measurement (moles/volume) 3.5 mmol/L 3.6-5.0 Serum or plasma chloride measurement (moles/volume) 105 mmol/L 98-107 Carbon dioxide 17 mmol/L 21-32 Serum or plasma anion gap determination (moles/volume) 20 mmol/L 5-14 Serum or plasma urea nitrogen measurement (mass/volume ) 10 mg/dL 7-18 Serum or plasma creatinine measurement (mass/volume) 0.93 mg/dL 0.60-1.30 Serum or plasma urea nitrogen/creatinine mass ratio 11 NRG Serum or plasma creatinine measurement w ith calculation of estimated glomerular filtration rate > NRG Serum or plasma glucose measurement (mass/volume) 124 mg/dL 70-105 Serum or plasma calcium measurement (mass/volume) 9.1 mg/dL 8.5-10.1 TROPONIN T - 03/19/19 06:28 TROPONIN T < 6 <=15 Urine drug screening test - 03/19/19 21: 45 Urine phencyclidine detection by screening method NEGATIVE NEGATIVE Urine benzodiazepines detection by screening method POSITIVE NEGATIVE Urine cocaine detection NEGATIVE NEGATI VE Urine amphetamines detection by screening method N EGATIVE NEGATIVE Urine methamphetamine detection by screening method NEGATIVE NEGATIVE Urine cannabinoids detection by screening method P OSITIVE NEGATIVE Urine opiates detection by screening method NEGATI VE NEGATIVE Urine barbiturates detection NEGATIVE N EGATIVE Screening urine tricyclic antidepressants detection NEGATIVE NEGATIVE Urine methadone detection by screening method NEGA TIVE NEGATIVE Urine oxycodone detection NEGATIVE NEGA TIVE Urine propoxyphene detection NEGATIVE N EGATIVE Blood CBC with ordered manual differenti al panel - 03/19/19 22:10 Blood leukocytes automated count (number/volume) 12.2 10*3/uL 4.3-11.0 Blood erythrocytes automated count (number/volume) 4.60 10*6/uL 4.35-5.85 Venous blood hemoglobin measurement (mass/volume) 14.1 g/dL 13.3-17.7 Blood hematocrit (volume fraction) 41 % 40-54 Automated erythrocyte mean corpuscular volume 88 [ foz_us] 80-99 Automated erythrocyte mean corpuscular h emoglobin (mass per erythrocyte) 31 pg 25-34 Automated erythrocyte mean corpuscular h emoglobin concentration measurement (mass/volume) 35 g/dL 32-36 Automated erythrocyte distribution width ratio 12. 9 % 10.0- 14.5 Automated blood platelet count (count/volume) 239 10*3/uL 130-400 Automated blood platelet mean volume measurement 10.4 [foz_us] 7.4-10.4 Automated blood neutrophils/100 leukocytes 80 % 42-75 Automated blood lymphocytes/100 leukocytes 14 % 12-44 Blood monocytes/100 leukocytes 5 % NRG Automated blood eosinophils/100 leukocytes 1 % 0-10 Automated blood basophils/100 leukocytes 0 % 0-10 Blood neutrophils automated count (number/volume) 9.8 10*3 1.8-7.8 Blood lymphocytes automated count (number/volume) 1.8 10*3 1.0-4.0 Blood monocytes automated count (number/volume) 0. 6 10*3 0.0-1.0 Automated eosinophil count 0.1 10*3/uL 0 .0-0.3 Automated blood basophil count (count/volume) 0.0 10*3/uL 0.0-0.1 Manual blood segmented neutrophils/100 leukocytes 78 % NRG Blood band neutrophils/100 leukocytes 4 % NRG Manual blood lymphocytes/100 leukocytes 12 % NRG Manual eosinophils/100 leukocytes in nose 1 % NRG Comprehensive metabolic panel - 03/19/19 22:10 Serum or plasma sodium measurement (moles/volume) 141 mmol/L 135-145 Serum or plasma potassium measurement (moles/volume) 4.1 mmol/L 3.6-5.0 Serum or plasma chloride measurement (moles/volume) 105 mmol/L 98-107 Carbon dioxide 20 mmol/L 21-32 Serum or plasma anion gap determination (moles/volume) 16 mmol/L 5-14 Serum or plasma urea nitrogen measurement (mass/volume ) 14 mg/dL 7-18 Serum or plasma creatinine measurement (mass/volume) 1.05 mg/dL 0.60-1.30 Serum or plasma urea nitrogen/creatinine mass ratio 13 NRG Serum or plasma creatinine measurement w ith calculation of estimated glomerular filtration rate > NRG Serum or plasma glucose measurement (mass/volume) 110 mg/dL 70-105 Serum or plasma calcium measurement (mass/volume) 8.9 mg/dL 8.5-10.1 Serum or plasma total bilirubin measurement (mass/volu me) 0.2 mg/dL 0.1-1.0 Serum or plasma alkaline phosphatase giuliana surement (enzymatic activity/volume) 74 U/L 40-136 Serum or plasma aspartate aminotransfera se measurement (enzymatic activity/volume) 20 U/L 5-34 Serum or plasma alanine aminotransferase measurement (enzymatic activity/volume) 12 U/L 0-55 Serum or plasma protein measurement (mass/volume) 7.1 g/dL 6.4-8.2 Serum or plasma albumin measurement (mass/volume) 4.7 g/dL 3.2-4.5 Serum or plasma salicylates measurement (mass/volume) - 03/19/19 22:10 Serum or plasma salicylates measurement (mass/volume) < mg/dL 5.0-20.0 Serum or plasma acetaminophen measuremen t (mass/volume) - 03/19/19 22:10 Serum or plasma acetaminophen measurement (mass/volume ) < ug/mL 10-30 Serum or plasma ethanol measurement (mas s/volume) - 03/19/19 22:10 Serum or plasma ethanol measurement (mass/volume) < mg/dL <10 Influenza virus A and B antigen detectio n - 12/20/19 09:21 FLU RESULT POSITIVE FOR INFLUENZA A ANT IGEN, NEG FOR B ANTIGEN, BY IA NRG Encounters ACCT No. Visit Date/Time Discharge Status Pt. Type Provider Facility Loc./Unit Complaint [id number] 05/06/2020 14:56:00 020 15:55:00 DIS Emergency KETRUAH YA, JENSEN Meehan Via [facility] ER FS DENTAL PAIN [id number] 12/20/2019 09:11:00 020 10:23:00 DIS Emergency SUDHIR OMER DO Via [facility] ER FS FEVER 101-102 X6 DAYS [id number] 03/19/2019 21:14:00 019 01:26:00 DIS Emergency SCOTT CAMPA DO Via [facility] ER FS SUICIDE ATTEMPT [id number] 03/19/2019 06:15:00 019 07:35:00 DIS Emergency EVANGELINA ADAMSON DO Via [facility] ER FS CHEST PAIN
== END 2020-05-06 15:55 | disposition home or self-care (01) ==
LOC: EDUNIT# 14:54 → ER FS 14:56
DX: K02.9 Dental caries, unspecified (principal)
CPT/HCPCS: 64400

== ENCOUNTER 2020-05-24 00:43 | Emergency (ER) | payer SELFPAY ==
[~2020-05-24] VITALS: Ht 167.7 cm; Wt 56.0 kg
[~2020-05-24 00:43] MED LIST changes: +NAPR-915 PO; +PENI250T2 PO
[2020-05-24 00:50] VITALS: BP 118/49
--- NOTE | 2020-05-24 00:55 | ED EENT ---
History of Present Illness General Chief Complaint: Nasal Problems Stated Complaint: NOSE BLEED Source: patient History of Present Illness Date Seen by Provider: May 24, 2020 Time Seen by Provider: 00:54 Initial Comments presents via EMS w a nosebleed. Stopped prior to arrival. No distress. Denies injury or bleeding disorder. Allergies and Home Medications Allergies Coded Allergies: No Known Drug Allergies (Unverified , 03/19/19) Home Medications Naproxen 500 Mg Tablet, 500 MG PO Q12H Prescribed by: JENSEN REBOLLAR on 05/06/20 1545 Penicillin V Potassium 250 Mg Tablet, 250 MG PO QID Prescribed by: JENSEN REBOLLAR on 05/06/20 1545 Patient Home Medication List Home Medication List Reviewed: Yes Review of Systems Review of Systems Constitutional: no symptoms reported Ears: No Symptoms Reported Nose: see HPI; denies clots, denies congestion; epistaxis; denies pain, denies bloody discharge, denies clear discharge, denies purulent discharge, denies serosanguinous discharge, denies previous injury Mouth: no symptoms reported Throat: no symptoms reported Respiratory: No cough, No short of breath Cardiovascular: No chest pain, No palpitations Skin: No change in color, No lesions, No rash Past Jjfpeaf-Eybbzx-Cgxhdw Hx Past Med/Social Hx: Reviewed Nursing Past Med/Soc Hx Patient Social History Alcohol Beverage of Choice: Beer Drug of Choice: marijuana, methamphetamines Type Used: Cigarettes 2nd Hand Smoke Exposure: No Recent Foreign Travel: No Contact w/Someone Who Travel: No Recent Hopitalizations: No Immunizations Up To Date Tetanus Booster (TDap): Unknown Seasonal Allergies Seasonal Allergies: No Past Medical History Surgeries: No Respiratory: No Cardiac: No Neurological: No Genitourinary: No Gastrointestinal: Yes Gastroesophageal Reflux Musculoskeletal: No Endocrine: No HEENT: No Cancer: No Psychosocial: Yes Depression Integumentary: No Blood Disorders: No Physical Exam Height, Weight, BMI Height: 5'7.00" Weight: 120lbs. 0oz. 54.650279lx; 19.00 BMI Method:Stated General Appearance: WD/WN, no apparent distress Ears: bilateral ear auricle normal, bilateral ear canal normal, bilateral ear TM normal Nose: No active bleeding, No discharge; dried blood; No foreign body, No sinus tenderness Mouth/Throat: pharynx normal; No excessive drooling, No foreign body, No maxillary swelling, No pharynx swelling, No tonsillar swelling, No uvula swel ling, No voice changes Neck: non-tender, supple Procedures/Interventions Suture Size: 6-0 Departure Impression Primary Impression: Epistaxis Disposition: 01 HOME, SELF-CARE Condition: Stable Departure-Patient Inst. Decision time for Depature: 00:55 Referrals: NO,LOCAL PHYSICIAN (PCP) Primary Care Physician SELF,VALENTINE YA Patient Instructions: [place] (DC) WYATT MYRICK DO May 24, 2020 00:55
--- OUTSIDE RECORDS SUMMARY | 2020-05-24 00:56 | XMS REPORT | Continuity of Care Document ---
Author Organization Unknown Address Unknown Phone Unavailable Allergies Active Description Code Type Severity Reaction Onset Reported/Identified Relationship to Patient Clinical Status Yes No Known Drug Allergies [id number] Drug Allergy Unknown N/A 03/19/2019 Medications There [...] T Ot T42.8X2A POISN BY ANTIPARKNS DRUG/[facility] 03/20/2019 KEANUP CRUZ DOINA T Ot W26.8XXA CONTACT WITH OTHER SHARP OBJECT(S), NEC, 03/21/2019 ANUP CAMPA DOINA T Ot F32.9 MAJOR DEPRESSIVE DISORDER, SINGLE EPISOD 03/21/2019 KEITHYANELY MCCAIN SCOTT T Ot R45.851 SUICIDAL IDEATIONS 03/21/2019 ANUP CAMPA DOINA T Ot S51.812A LACERATION WITHOUT FOREIGN BODY OF LEFT 03/21/2019 ANUP CAMPA DOINA T Ot T42.8X2A POISN BY ANTIPARKNS DRUG/[facility] 03/21/2019 KE[place]UP [place] DOINA T Ot W26.8XXA [...] DO Ot J10. 1 FLU DUE TO OT IDENT INFLUENZA VIRUS W O 12/20/2019 SUDHIR OMER DO Ot R50. 9 FEVER, UNSPECIFIED 05/11/2020 JENSEN REBOLLAR MD Ot K02. 9 DENTAL CARIES, UNSPECIFIED 05/11/2020 JENSEN REBOLLAR MD Ot K08. 89 OTHER SPECIFIED DISORDERS OF TEETH AND S Procedures There is no data. Results Test [...] or plasma urea nitrogen/creatinine mass ratio 13 NR Serum or plasma creatinine measurement w ith calculation of estimated glomerular filtration rate > [facility] Serum or plasma glucose measurement (mass/volume) 110 [...] Status Pt. Type Provider Facility Loc./Unit Complaint [id number] 05/06/2020 14:56:00 020 15:55:00 DIS Outpatient KEUTRAH YA, JENSEN Meehan Via [facility] ER FS DENTAL PAIN [id number] 12/20/2019 09:11:00 020 10:23:00 DIS Emergency SUDHIR OMER DO Via [facility] ER FS FEVER 101-102 X6 DAYS [id number] 03/19/2019 21:14:00 019 01:26:00 DIS Emergency SCOTT CAMPA DO Via [facility] ER FS SUICIDE ATTEMPT [id number] 03/19/2019 06:15:00 019 07:35:00 DIS Emergency EVANGELINA ADAMSON DO Via [facility] ER FS CHEST PAIN
== END 2020-05-24 01:04 | disposition home or self-care (01) ==
LOC: EDUNIT# 00:43 → ER FS 00:52
DX: R04.0 Epistaxis (principal); K21.9 Gastro-esophageal reflux disease without esophagitis; F32.9 Major depressive disorder, single episode, unspecified
CPT/HCPCS: 82962; 99283

== ENCOUNTER 2021-01-21 11:38 | Emergency (ER) | payer SELFPAY ==
[~2021-01-21] VITALS: Ht 170 cm; Wt 65.0 kg
[2021-01-21 11:55] VITALS: BP 135/63
--- NOTE | 2021-01-21 13:01 | ED General ---
General Chief Complaint: Fever-Adult/Adol Stated Complaint: GENERAL WEAKNESS/ACHING Nursing Triage Note: PT REPORTS LAST NIGHT HE STARTED FEELING FATIGUE AND HAVING BODY ACHES WITH HIS EARS HURTING WELL. Nursing Sepsis Screen: No Definite Risk Source of Information: Patient Exam Limitations: No Limitations History of Present Illness Date Seen by Provider: Jan 21, 2021 Time Seen by Provider: 11:30 Initial Comments Patient is a 20-year-old male who presents with body aches, fever 100.6, cough runny nose congestion and ear pain. He also has eye redness and tearing. No sore throat, loss of taste smell, shortness of breath and wheezing. No headache neck stiffness or rash. No other acute symptoms or complaints. Symptoms occurred within the past 24 hours. Timing/Duration: 24 Hours Severity: Moderate Modifying Factors: improves with Other Associated Systoms: Other Allergies and Home Medications Allergies Coded Allergies: No Known Drug Allergies (Unverified , 03/19/19) Home Medications Naproxen 500 Mg Tablet, 500 MG PO Q12H Prescribed by: JENSEN REBOLLAR on 05/06/20 1545 Penicillin V Potassium 250 Mg Tablet, 250 MG PO QID Prescribed by: JENSEN REBOLLAR on 05/06/20 1545 Patient Home Medication List Home Medication List Reviewed: Yes Review of Systems Review of Systems Constitutional: see HPI EENTM: see HPI Respiratory: see HPI Cardiovascular: see HPI Gastrointestinal: see HPI Genitourinary: see HPI Musculoskeletal: see HPI Skin: see HPI Psychiatric/Neurological: See HPI Hematologic/Lymphatic: See HPI Immunological/Allergic: see HPI All Other Systems Reviewed Negative Unless Noted: Yes Past Zlijbra-Cquruv-Jsyetq Hx Past Med/Social Hx: Reviewed Nursing Past Med/Soc Hx Patient Social History Alcohol Use: Occasionally Uses Alcohol Beverage of Choice: Beer Drug of Choice: marijuana, methamphetamines Smoking Status: Current Everyday Smoker Type Used: Cigarettes 2nd Hand Smoke Exposure: No Recent Infectious Disease Expo: No Recent Hopitalizations: No Immunizations Up To Date Tetanus Booster (TDap): Unknown Seasonal Allergies Seasonal Allergies: No Past Medical History Surgeries: No Respiratory: No Cardiac: No Neurological: No Genitourinary: No Gastrointestinal: Yes Gastroesophageal Reflux Musculoskeletal: No Endocrine: No HEENT: No Cancer: No Psychosocial: Yes Depression Integumentary: No Blood Disorders: No Physical Exam Vital Signs Vital Signs - First Documented 01/21/21 11:55 Temp 38.1 Pulse 120 Resp 18 B/P (MAP) 135/63 (87) Pulse Ox 97 O2 Delivery Room Air Capillary Refill : Less Than 3 Seconds Height, Weight, BMI Height: 5'7.00" Weight: 120lbs. 0oz. 54.760658dj; 22.00 BMI Method:Stated General Appearance: No Apparent Distress, Other Eyes: Bilateral Eye Normal Inspection, Bilateral Eye Other (Conjunctiva injected) HEENT: PERRL/EOMI, Normal ENT Inspection, Pharynx Normal Neck: Full Range of Motion, Non Tender, Supple Respiratory: Chest Non Tender, Lungs Clear Cardiovascular: Regular Rate, Rhythm Gastrointestinal: Soft Back: Normal Inspection Extremity: Other Neurologic/Psychiatric: Alert, Oriented x3, No Motor/Sensory Deficits, follow up rep II- XII Norm as Tested Skin: Normal Color, Other Lymphatic: Other Focused Exam Sepsis Stage: Ruled Out Procedures/Interventions Suture Size: 6-0 Progress/Results/Core Measures Suspected Sepsis Recent Fever Within 48 Hours: Yes Infection Criteria Present: None New/Unexplained Altered Menta: No Sepsis Screen: No Definite Risk SIRS Temperature: Pulse: 120 Respiratory Rate: 18 Blood Pressure 135 /63 Mean: 87 Results/Orders Lab Results Laboratory Tests Test 01/21/21 11:50 Range/Units Micro Results Microbiology 01/21/21 Influenza Types A,B Antigen (CATY) - Final, Complete My Orders Orders - EVANGELINA ADAMSON DO Influenza A And B Antigens (01/21/21 11:49) Coronavirus Sars-Cov-2 So 2018 (01/21/21 11:49) Vital Signs/I&O 01/21/21 11:55 Temp 38.1 Pulse 120 Resp 18 B/P (MAP) 135/63 (87) Pulse Ox 97 O2 Delivery Room Air Capillary Refill : Less Than 3 Seconds Blood Pressure Mean: 87 Departure Communication (Admissions) Patient nontoxic well-hydrated no headache, neck stiffness rigidity or rash. No respiratory compromise symptoms consistent with acute viral illness with concern for possible Covid. Influenza negative. Covid swab pending. Recommend watchful waiting, supportive care and PCP follow-up. Return precautions reviewed. Impression Primary Impression: Viral syndrome Disposition: HOME, SELF-CARE Condition: Stable Departure-Patient Inst. Decision time for Depature: 13:01 Referrals: NO,LOCAL PHYSICIAN (PCP/Family) Primary Care Physician Patient Instructions: Viral Syndrome (DC) Add. Discharge Instructions: Please increase fluids and take ibuprofen for pain and newly prescribed medications as directed. Your Covid test results are pending and may take 2 to 3 days to resolve. In the meantime, continue to self quarantine and follow other CDC recommendations regarding Covid. Return to the ED if new or worsening symptoms. All discharge instructions reviewed with patient and/or family. Voiced understanding. Scripts Fexofenadine/Pseudoephedrine (Priti-D 12 Hour Tablet) 1 Each Tab.er.12h 1 EACH PO BID, #14 TAB Prov: EVANGELINA ADAMSON DO 01/21/21 Tramadol HCl (Tramadol HCl) 50 Mg Tablet 100 MG PO Q8H, #30 TAB Prov: EVANGELINA ADAMSON DO 01/21/21 EVANGELINA ADAMSON DO Jan 21, 2021 13:01
[2021-01-21] MEDS ORDERED: FEXO1TAB40 PO (13:09)
[2021-01-21] MEDS ORDERED: TRAM50TA3 PO (13:09)
== END 2021-01-21 13:15 | disposition home or self-care (01) ==
LOC: EDUNIT# 11:38 → ER FS 11:42
DX: B34.9 Viral infection, unspecified (principal); F17.210 Nicotine dependence, cigarettes, uncomplicated; Z20.822 Contact with and (suspected) exposure to COVID-19
CPT/HCPCS: 87804 ×2; 99282; U0002; 87635

== ENCOUNTER 2021-02-06 20:03 | Emergency (ER) | payer SELFPAY ==
[~2021-02-06] VITALS: Ht 170.1 cm; Wt 56.0 kg
[~2021-02-06 20:03] MED LIST changes: +FEXO1TAB40 PO; +TRAM50TA3 PO
[2021-02-06 20:04] VITALS: BP 119/70
[2021-02-06] MEDS ORDERED: AMOX-358 PO (20:24)
--- NOTE | 2021-02-06 20:24 | ED EENT ---
History of Present Illness General Chief Complaint: Dental Problems/Pain Stated Complaint: MOUTH ABCESS Source: patient Exam Limitations: no limitations History of Present Illness Date Seen by Provider: Feb 06, 2021 Time Seen by Provider: 20:09 Initial Comments Patient presents ER by private conveyance chief complaint of 3 days of progressively worsening swelling and pain related to a bad tooth on his left lower molar. No fever chills or difficulty swallowing. No nausea or vomiting. He has not seen a dentist and he is not on antibiotics recently Allergies and Home Medications Allergies Coded Allergies: No Known Drug Allergies (Unverified , 03/19/19) Home Medications Amoxicillin/Potassium Clav 1 Each Tablet, 1 EACH PO BID Prescribed by: DEBBIE FLORES on 02/06/212023 Fexofenadine/Pseudoephedrine 1 Each Tab.er.12h, 1 EACH PO BID Prescribed by: EVANGELINA ADAMSON on 01/21/21 1309 Naproxen 500 Mg Tablet, 500 MG PO Q12H Prescribed by: JENSEN REBOLLAR on 05/06/20 1545 Penicillin V Potassium 250 Mg Tablet, 250 MG PO QID Prescribed by: JENSEN REBOLLAR on 05/06/20 1545 Tramadol HCl 50 Mg Tablet, 100 MG PO Q8H Prescribed by: EVANGELINA ADAMSON on 01/21/21 1309 Patient Home Medication List Home Medication List Reviewed: Yes Review of Systems Review of Systems Constitutional: No chills, No diaphoresis Eyes: Denies Blindness, Denies Blurred Vision Ears: Denies Dizziness, Denies Pain Nose: denies clots, denies congestion Mouth: denies clots, denies pain Past Asdyxky-Geztrl-Lutbos Hx Patient Social History Alcohol Use: Occasionally Uses Alcohol Beverage of Choice: Beer Drug of Choice: marijuana, methamphetamines Smoking Status: Current Everyday Smoker Type Used: Cigarettes 2nd Hand Smoke Exposure: No Recent Hopitalizations: No Immunizations Up To Date Tetanus Booster (TDap): Unknown Seasonal Allergies Seasonal Allergies: No Past Medical History Surgeries: No Respiratory: No Cardiac: No Neurological: No Genitourinary: No Gastrointestinal: Yes Gastroesophageal Reflux Musculoskeletal: No Endocrine: No HEENT: No Cancer: No Psychosocial: Yes Depression Integumentary: No Blood Disorders: No Physical Exam Vital Signs Vital Signs - First Documented 02/06/21 20:04 Temp 37.8 Pulse 92 Resp 18 B/P (MAP) 119/70 (86) O2 Delivery Room Air Height, Weight, BMI Height: 5'7.00" Weight: 120lbs. 0oz. 54.072720iq; 22.00 BMI Method:Stated General Appearance: WD/WN, mild distress Eyes: bilateral eye normal inspection, bilateral eye PERRL, bilateral eye EOMI Ears: bilateral ear auricle normal, bilateral ear canal normal Nose: normal inspection; No active bleeding Mouth/Throat: other (Moderately advanced global dental caries with some mild so ft tissue swelling but no fluctuance pointing or drainable abscess to 0.2.) Neck: non-tender, tender lateral (Left side mild swelling left side.) Cardiovascular: normal peripheral pulses, regular rate, rhythm Neurologic/Psychiatric: alert, oriented x 3, other (Tearful affect) Skin: normal color, warm/dry Procedures/Interventions Suture Size: 6-0 Progress Alveolar nerve block left: Injected a admixture of 50-50 1% lidocaine and half percent Marcaine total of 1.2 cc each into the area of the left alveolar nerve root where it exits the mandible. This was over 2 injections as the first 1 did not give good anesthesia. Had a second time the patient felt that he was getting much better anesthesia. Progress/Results/Core Measures Results/Orders My Orders Orders - DEBBIE FLORES Amoxicillin/Clavulanate Tablet (Augmenti (02/06/21 20:30) Bupivacaine 0.5% Injection (Sensorcaine (02/06/21 20:30) Lidocaine 1% Inj 20 Ml (Xylocaine 1% Inj (02/06/21 20:30) Lidocaine 2% Viscous 15 Ml (Xylocaine Vi (02/06/21 20:30) Medications Given in ED Current Medications Medications Dose Ordered Sig/Aron Route Start Time Stop Time Status Last Admin Dose Admin Amoxicillin/ Clavulanate Potassium 875 mg ONCE ONCE PO 02/06/21 20:30 02/06/21 20:31 DC 02/06/21 20:26 875 MG Bupivacaine HCl 30 ml ONCE ONCE INJ 02/06/21 20:30 02/06/21 20:31 DC 02/06/21 20:37 5 ML Lidocaine HCl 20 ml ONCE ONCE INJ 02/06/21 20:30 21 20:31 DC 02/06/21 20:36 20 ML Vital Signs/I&O 02/06/21 20:04 Temp 37.8 Pulse 92 Resp 18 B/P (MAP) 119/70 (86) O2 Delivery Room Air Progress Progress Note : Time: 20:21 Progress Note Offered to do a alveolar nerve block and he accepted this. Ciaran put him on some Augmentin and have him follow-up with a dentist. Departure Impression Primary Impression: Dental abscess Disposition: HOME, SELF-CARE Condition: Stable Departure-Patient Inst. Decision time for Depature: 20:21 Referrals: NO,LOCAL PHYSICIAN (PCP/Family) Primary Care Physician Patient Instructions: Tooth Abscess (DC) Add. Discharge Instructions: You have an infection in your tooth. The antibiotics will help bring the swelling and pain down over the next 7 days. You need to follow-up with a dentist at your soonest convenience to get this d rained surgically. Augmentin 1 tablet twice a day for the following 7 days. Stick to a liquid diet until your tooth is hurting less. Ibuprofen 800 mg every 8 hours as necessary for pain. Tylenol 1000 mg every 8 hours as necessary for pain. Viscous lidocaine topical applied directly over the tooth with some gauze every 4 hours as necessary to numb the tooth. All discharge instructions reviewed with patient and/or family. Voiced understanding. Scripts Amoxicillin/Potassium Clav (Augmentin 875-125 Tablet) 1 Each Tablet 1 EACH PO BID for 7 Days, #14 TAB 0 Refills Prov: DEBBIE FLORES 02/06/21 DEBBIE FLORES Feb 06, 2021 20:24
[2021-02-06] MEDS ORDERED: BUPIVACAINE 0.5% 30 ML (SENSORCAINE) VIAL INJ ONE (20:30)
[2021-02-06] MEDS ORDERED: LIDOCAINE 2% VISCOUS 15 ML UDC PO ONE (20:30)
[2021-02-06] MEDS ORDERED: LIDOCAINE 1% INJ 20 ML 20 ML VIAL INJ ONE (20:30)
[2021-02-06] MEDS ORDERED: AUGMENTIN 875 MG TAB (AMOXICILLIN/CLAVULANATE) PO ONE (20:30)
== END 2021-02-06 21:01 | disposition home or self-care (01) ==
LOC: EDUNIT# 20:03 → ER FS 20:07
DX: K04.7 Periapical abscess without sinus (principal); K02.9 Dental caries, unspecified; R22.1 Localized swelling, mass and lump, neck; F17.210 Nicotine dependence, cigarettes, uncomplicated; Z88.0 Allergy status to penicillin
CPT/HCPCS: 99284

== ENCOUNTER 2021-02-24 01:18 | Emergency (ER) | payer SELFPAY ==
[~2021-02-24] VITALS: Ht 170.1 cm; Wt 56.0 kg
[~2021-02-24 01:18] MED LIST changes: +AMOX-358 PO
[2021-02-24 01:32] VITALS: BP 120/84
--- NOTE | 2021-02-24 01:35 | ED General ---
General Stated Complaint: ALLERIES History of Present Illness Date Seen by Provider: Feb 24, 2021 Time Seen by Provider: 01:30 Initial Comments 20-year-old male presents with congestion, scratchy throat this been going on for about 3 to 4 days. Patient reports he has seasonal allergies but this seems little bit worse. Reports that he is taking Claritin and Benadryl it seems like it is gotten worse. Patient reports maybe some chills, however no fever, cough. He does report a little bit of ear pain. No nausea vomiting or diarrhea. Allergies and Home Medications Allergies Coded Allergies: No Known Drug Allergies (Unverified , 03/19/19) Home Medications Amoxicillin/Potassium Clav 1 Each Tablet, 1 EACH PO BID Prescribed by: DEBBIE FLORES on 02/06/212023 Fexofenadine/Pseudoephedrine 1 Each Tab.er.12h, 1 EACH PO BID Prescribed by: EVANGELINA ADAMSON on 01/21/21 130 Naproxen 500 Mg Tablet, 500 MG PO Q12H Prescribed by: JENSEN REBOLLAR on 05/06/20 1545 Penicillin V Potassium 250 Mg Tablet, 250 MG PO QID Prescribed by: JENSEN REBOLLAR on 05/06/20 1545 Tramadol HCl 50 Mg Tablet, 100 MG PO Q8H Prescribed by: EVANGELINA ADAMSON on 01/21/21 1309 Patient Home Medication List Home Medication List Reviewed: Yes Review of Systems Review of Systems Constitutional: chills; No fever, No malaise, No weakness EENTM: see HPI, nose congestion Respiratory: No cough, No short of breath Cardiovascular: No chest pain Gastrointestinal: No diarrhea, No nausea, No vomiting Genitourinary: no symptoms reported Musculoskeletal: no symptoms reported Skin: No rash Psychiatric/Neurological: No Symptoms Reported Past Hauqeqr-Zwldvu-Ijhmbc Hx Past Med/Social Hx: Reviewed Nursing Past Med/Soc Hx Patient Social History Alcohol Beverage of Choice: Beer Drug of Choice: marijuana, methamphetamines Type Used: Cigarettes 2nd Hand Smoke Exposure: No Recent Hopitalizations: No Immunizations Up To Date Tetanus Booster (TDap): Unknown Seasonal Allergies Seasonal Allergies: No Past Medical History Surgeries: No Respiratory: No Cardiac: No Neurological: No Genitourinary: No Gastrointestinal: Yes Gastroesophageal Reflux Musculoskeletal: No Endocrine: No HEENT: No Cancer: No Psychosocial: Yes Depression Integumentary: No Blood Disorders: No Physical Exam Vital Signs Vital Signs - First Documented 02/24/21 01:32 Temp 36.7 Pulse 62 Resp 14 B/P (MAP) 120/84 (96) O2 Delivery Room Air Capillary Refill : Height, Weight, BMI Height: 5'7.00" Weight: 120lbs. 0oz. 54.103632mi; 19.00 BMI Method:Stated General Appearance: No Apparent Distress, WD/WN Eyes: Bilateral Eye Normal Inspection HEENT: TMs Normal, Other (Mild pharyngeal erythema) Neck: Normal Inspection, Non Tender Respiratory: Lungs Clear, Normal Breath Sounds Cardiovascular: Regular Rate, Rhythm, No Edema Gastrointestinal: Non Tender, Soft Extremity: Normal Capillary Refill, Normal Inspection Neurologic/Psychiatric: Alert, Oriented x3, Normal Mood/Affect, lead blender II-XII Norm as Tested Procedures/Interventions Suture Size: 6-0 Progress/Results/Core Measures Suspected Sepsis SIRS Temperature: Pulse: Respiratory Rate: Blood Pressure / Mean: Results/Orders Vital Signs/I&O 02/24/21 02/24/21 01:32 01:32 Temp 36.7 Pulse 62 Resp 14 B/P (MAP) 120/84 (96) O2 Delivery Room Air Room Air Capillary Refill : Progress Note : Progress Note Discussed with patient that he is either having seasonal allergies versus early viral illness. Both treatments are supportive. I recommend he start Afrin and Flonase nasal spray. Discussed with him after delayed longer than 3 days at a time and then off for 3 to 4 days. Recommend he continue Claritin. He could add some Mucinex if he feels congested. Drink plenty of fluid. Patient stable and discharged Departure Impression Primary Impression: Sinus congestion Disposition: 01 HOME, SELF-CARE Condition: Stable Departure-Patient Inst. Referrals: NO,LOCAL PHYSICIAN (PCP/Family) Primary Care Physician Patient Instructions: Seasonal Allergies (DC), Cough, Runny Nose, and the Common Cold Add. Discharge Instructions: Afrin nasal spray as directed on package x3 days, then off for 3 days may repeat session 1-2 time Flonase, Nasacort or other similar nasal steroid as directed on package [id number] Mucinex as directed on package Continue Claritin daily Drink plenty of fluids PRATIK FERRIS DO Feb 24, 2021 01:35
== END 2021-02-24 01:58 | disposition home or self-care (01) ==
LOC: EDUNIT# 01:18 → ER FS 01:20
DX: R09.81 Nasal congestion (principal)
CPT/HCPCS: 99282

== ENCOUNTER 2021-03-01 22:14 | Emergency (ER) | payer SELFPAY ==
[~2021-03-01 22:14] MED LIST changes: +fentaNYL INJ 100 MCG/2 ML AMP ONE
[2021-03-01] MEDS ORDERED: KETAMINE/NaCl 50 MG/5 ML SYRINGE (ED ONLY) ONE (22:19)
[2021-03-01] MEDS ORDERED: LIDOCAINE/EPI 2% 1:100,00 (XYLOCAINE) 20 ML VIAL ONE (22:25)
[2021-03-01] MEDS ORDERED: fentaNYL INJ 100 MCG/2 ML AMP IVP ONE ×2 (22:30→23:00)
[2021-03-01 22:36] LABS: BASOPHILS # (AUTO) 0.1 10^3/uL (0.0-0.1); BASOPHILS % (AUTO) 1 % (0-10); EOSINOPHILS # (AUTO) 0.2 10^3/uL (0.0-0.3); EOSINOPHILS % (AUTO) 2 % (0-10); HEMATOCRIT 35 % (40-54); HEMOGLOBIN 11.6 g/dL (13.3-17.7); LYMPHOCYTES # (AUTO) 3.5 10^3/uL (1.0-4.0); LYMPHOCYTES % (AUTO) 47 % (12-44); MEAN CORPUSCULAR HEMOGLOBIN 30 pg (25-34); MEAN CORPUSCULAR HGB CONC 33 g/dL (32-36); MEAN CORPUSCULAR VOLUME 91 fL (80-99); MEAN PLATELET VOLUME 9.5 fL (9.0-12.2); MONOCYTES # (AUTO) 0.4 10^3/uL (0.0-1.0); MONOCYTES % (AUTO) 5 % (0-12); NEUTROPHILS # (AUTO) 3.4 10^3/uL (1.8-7.8); NEUTROPHILS % (AUTO) 45 % (42-75); PLATELET COUNT 347 10^3/uL (130-400); WHITE BLOOD COUNT 7.6 10^3/uL (4.3-11.0)
[2021-03-01 22:47] LABS: ALBUMIN 4.1 GM/DL (3.2-4.5); CHLORIDE 112 MMOL/L (98-107); POTASSIUM 3.7 MMOL/L (3.6-5.0); SODIUM 143 MMOL/L (135-145)
[2021-03-01 22:48] LABS: CALCIUM 7.7 MG/DL (8.5-10.1)
[2021-03-01 22:49] LABS: GLUCOSE 115 MG/DL (70-105)
[2021-03-01 22:50] LABS: CARBON DIOXIDE 19 MMOL/L (21-32); TOTAL PROTEIN 6.3 GM/DL (6.4-8.2)
[2021-03-01 22:51] LABS: BILIRUBIN,TOTAL 0.2 MG/DL (0.1-1.0)
[2021-03-01 22:53] LABS: ALKALINE PHOSPHATASE 69 U/L (40-136); CREATININE SERUM 0.75 MG/DL (0.60-1.30); GFR ESTIMATED > 60
--- NOTE | 2021-03-01 22:53 | Consultation - Surgery ---
History of Present Illness History of Present Illness Patient Consulted On(walt/time) 03/01/21 22:47 Time Seen by Provider: 22:28 History of Present Illness Surgery asked to consult regarding Right Forearm Laceration. HPI per ED: Patient arrives ER by EMS from [place] where he was at his home drinking about 1/5 of vodka and he fell through a plate glass window causing a laceration about 4 cm on his right forearm with some superficial abrasions and a superficial laceration over the knuckle of his fifth digit right hand. A tourniquet was placed using a belt by his father and EMS swapped it for a axillary cat 7 tourniquet. Patient had no feeling and no pulse in his radial artery on the right side. He was given 50 mcg of fentanyl initially and another 50 mcg on route by EMS. He rates his pain as severe. No other injuries noted. No other pain. He denies loss of consciousness. He does not recall the last time he had a tetanus vaccine. He has had 1 L of normal saline initiated by EMS. He has denied any suicidal intention per EMS and per patient while in the ER. When I saw pt he had been in the ER only a few minutes. He had a tourniquet in place; almost in axilla and his fingers and arm were starting to turn purple. Pt stated he couldn't move or feel fingers, pain was under control because he had just received pain meds from ER physician. Allergies and Home Medications Allergies Coded Allergies: No Known Drug Allergies (Unverified , 03/19/19) Home Medications Amoxicillin/Potassium Clav 1 Each Tablet, 1 EACH PO BID Prescribed by: DEBBIE FLORES on 02/06/212023 Cephalexin 500 Mg Tablet, 500 MG PO TID Prescribed by: DEBBIE FLORES on 03/01/21 2339 Fexofenadine/Pseudoephedrine 1 Each Tab.er.12h, 1 EACH PO BID Prescribed by: EVANGELINA ADAMSON on 01/21/21 1309 Hydrocodone/Acetaminophen 1 Each Tablet, 1 TAB PO Q6H PRN for PAIN-MODERATE (5- 7) Prescribed by: DEBBIE FLORES on 03/01/21 2340 Naproxen 500 Mg Tablet, 500 MG PO Q12H Prescribed by: JENSEN REBOLLAR on 05/06/20 1545 Penicillin V Potassium 250 Mg Tablet, 250 MG PO QID Prescribed by: JENSEN REBOLLAR on 05/06/20 1545 Tramadol HCl 50 Mg Tablet, 100 MG PO Q8H Prescribed by: EVANGELINA ADAMSON on 01/21/21 1309 Patient Home Medication List Home Medication List Reviewed: Yes Past Iononls-Dkifdj-Tnybgi Hx Patient Social History Drug of Choice: marijuana, methamphetamines Smoking Status: Current Everyday Smoker Type Used: Cigarettes 2nd Hand Smoke Exposure: No Recent Hopitalizations: No Alcohol Use?: Yes Substance type: Methamphetamine, Marijuana Immunizations Up To Date Tetanus Booster (TDap): Unknown Seasonal Allergies Seasonal Allergies: No Surgeries History of Surgeries: No Respiratory History of Respiratory Disorde: No Cardiovascular History of Cardiac Disorders: No Neurological History of Neurological Disord: No Genitourinary History of Genitourinary Disor: No Gastrointestinal History of Gastrointestinal Di: Yes Gastrointestinal Disorders: Gastroesophageal Reflux Musculoskeletal History of Musculoskeletal Dis: No Endocrine History of Endocrine Disorders: No HEENT History of HEENT Disorders: No Cancer History of Cancer: No Psychosocial History of Psychiatric Problem: Yes Behavioral Health Disorders: Depression Integumentary History of Skin or Integumenta: No Blood Transfusions History of Blood Disorders: No Family Medical History Significant Family History: Diabetes (Grandmother and Father), Hypertension (Grandmother and Father) Review of Systems-General Constitutional: No chills, No diaphoresis; dizziness EENTM: No blurred vision, No double vision, No mouth pain, No mouth swelling, No epistaxis Respiratory: No cough, No dyspnea on exertion, No hemoptysis Cardiovascular: No chest pain, No edema, No palpitations Gastrointestinal: No abdominal pain, No nausea, No vomiting Genitourinary: No dysuria, No frequency, No hematuria Musculoskeletal: joint swelling, muscle pain, muscle stiffness, muscle cramps, muscle weakness Skin: see HPI, other (tattoos) Psychiatric/Neurological: Depressed, Numbness, Paresthesia, Tingling, Weakness Other pt denies any hx of abnormal bleeding or bruising Physical Exam-General Problems Physical Exam Vital Signs Capillary Refill : General Appearance: WD/WN, mild distress Eyes: Bilateral Eye PERRL, Bilateral Eye EOMI HEENT: pharynx normal; No scleral icterus (R), No scleral icterus (L), No pale conjunctivae (R), No pale conjunctivae (L) Neck: supple, normal inspection Respiratory: chest non-tender, lungs clear, normal breath sounds, no respiratory distress, no accessory muscle use Cardiovascular: regular rate, rhythm, no murmur Peripheral Pulses: 2+ Carotid (R), 2+ Carotid (L), 2+ Femoral (R), 2+ Femoral (L), 2+ Radial Pulses (R), 2+ Radial Pulses (L) Gastrointestinal: non tender, soft, no organomegaly, no pulsatile mass Back: no CVA tenderness, no vertebral tenderness Extremities: no calf tenderness, normal capillary refill, other (multiple lacerations on right arm, biggest and deepest is just below AC fossa, 2-3 cm l roberto and goes down through fascia into muscle. Pt able to move fingers and feel them once tourniquet removed) Neurologic/Psychiatric: alert, oriented x 3, other (intoxicated) Skin: normal color, warm/dry Lymphatic: no adenopathy (neck, axilla or groin) Data Review Labs Laboratory Tests 03/01/21 22:30: White Blood Count 7.6, Red Blood Count 3.89L, Hemoglobin 11.6L, Hematocrit 35L, Mean Corpuscular Volume 91, Mean Corpuscular Hemoglobin 30, Mean Corpuscular Hemoglobin Concent 33, Red Cell Distribution Width 13.9, Platelet Count 347, Mean Platelet Volume 9.5, Immature Granulocyte % (Auto) 1, Neutrophils (%) (Auto) 45, Lymphocytes (%) (Auto) 47H, Monocytes (%) (Auto) 5, Eosinophils (%) (Auto) 2, Basophils (%) (Auto) 1, Neutrophils # (Auto) 3.4, Lymphocytes # (Auto) 3.5, Monocytes # (Auto) 0.4, Eosinophils # (Auto) 0.2, Basophils # (Auto) 0.1, Immature Granulocyte # (Auto) 0.1 Assessment/Plan Assessment/Plan Assessment/Plan Laceration of Right forearm EtOH Intoxication Plan to suture fascia and staple skin closed, IV ABX and some oral ABX to go home on. DELMAR ESCUDERO DO Mar 01, 2021 22:53
[2021-03-01 22:54] LABS: BUN/CREATININE RATIO 9
[2021-03-01 22:56] LABS: ALANINE AMINOTRANSFERASE 15 U/L (0-55)
--- NOTE | 2021-03-01 22:59 | ED Upper Extremity ---
General Chief Complaint: Laceration Stated Complaint: ARM LAC, INTOXICATED Nursing Triage Note: PRESENTS VIA [facility] EMS FROM SCENE OF INJURY WITH C/O LACERATION. EMS ADVISE PT HIGHLY INTOXICATED ET FELL THROUGH A GLASS WINDOW. [facility] EMS ACCESSED 18SL TO L AC ET L WRIST. EMS PLACED TOURNIQUET TO R UPPER ARM AT 2130 D/T EXCESSIVE BLEEDING FROM LACERATION TO R FA. UPON ARRIVAL TOURNIQUET IN PLACE WITH DISCOLORATION TO R ARM DISTALLY TO TOURNIQUET. GAPING LACERATION NOTED TO R FA. PT STATES HE CONSUMED APPROX 1/2 PINT OF VODKA PRIOR TO INJURY. PT STATES HE IS UNAWARE OF LAST TETANUS VACCINE. Nursing Sepsis Screen: No Definite Risk Source: patient, EMS Exam Limitations: no limitations History of Present Illness Date Seen by Provider: Mar 01, 2021 Time Seen by Provider: 22:16 Initial Comments Patient arrives ER by EMS from [place] where he was at his home drinking about 1/5 of vodka and he fell through a plate glass window causing a laceration about 4 cm on his right forearm with some superficial abrasions and a superficial laceration over the knuckle of his fifth digit right hand. A tourniquet was placed using a belt by his father and EMS swapped it for a axillary cat 7 tourniquet. Patient had no feeling and no pulse in his radial artery on the right side. He was given 50 mcg of fentanyl initially and another 50 mcg on route by EMS. He rates his pain as severe. No other injuries noted. No other pain. He denies loss of consciousness. He does not recall the last time he had a tetanus vaccine. He has had 1 L of normal saline initiated by EMS. He has denied any suicidal intention per EMS and per patient while in the ER. Allergies and Home Medications Allergies Coded Allergies: No Known Drug Allergies (Unverified , 03/19/19) Home Medications Amoxicillin/Potassium Clav 1 Each Tablet, 1 EACH PO BID Prescribed by: DEBBIE FLORES on 02/06/212023 Fexofenadine/Pseudoephedrine 1 Each Tab.er.12h, 1 EACH PO BID Prescribed by: EVANGELINA ADAMSON on 01/21/21 1309 Naproxen 500 Mg Tablet, 500 MG PO Q12H Prescribed by: JENSEN REBOLLAR on 05/06/20 1545 Penicillin V Potassium 250 Mg Tablet, 250 MG PO QID Prescribed by: JENSEN REBOLLAR on 05/06/20 1545 Tramadol HCl 50 Mg Tablet, 100 MG PO Q8H Prescribed by: EVANGELINA ADAMSON on 01/21/21 1309 Patient Home Medication List Home Medication List Reviewed: Yes Review of Systems Constitutional: No chills, No diaphoresis EENTM: No ear discharge, No ear pain Respiratory: No cough, No short of breath Cardiovascular: No chest pain, No edema Gastrointestinal: No abdominal pain, No nausea Genitourinary: No discharge, No dysuria All Other Systems Reviewed Negative Unless Noted: Yes Past Ifcmogn-Mfgjvg-Akbrrd Hx Patient Social History Alcohol Use: Rarely Uses Number of Drinks Today: 10 Alcohol Beverage of Choice: Beer, Vodka Drug of Choice: marijuana, methamphetamines Smoking Status: Current Everyday Smoker Type Used: Cigarettes 2nd Hand Smoke Exposure: No Recent Infectious Disease Expo: No Recent Hopitalizations: No Substance type: Methamphetamine, Marijuana Alcohol Use?: Yes Immunizations Up To Date Tetanus Booster (TDap): Unknown Seasonal Allergies Seasonal Allergies: No Past Medical History Surgeries: No Respiratory: No Cardiac: No Neurological: No Genitourinary: No Gastrointestinal: Yes Gastroesophageal Reflux Musculoskeletal: No Endocrine: No HEENT: No Cancer: No Psychosocial: Yes Depression Integumentary: No Blood Disorders: No Family Medical History Diabetes (Grandmother and Father), Hypertension (Grandmother and Father) Physical Exam Vital Signs Vital Signs - First Documented 03/01/21 22:16 Temp 36.6 Pulse 93 Resp 17 B/P (MAP) 126/105 (112) Pulse Ox 99 O2 Delivery Room Air Capillary Refill : Less Than 3 Seconds Height, Weight, BMI Height: 5'7.00" Weight: 120lbs. 0oz. 54.185661dh; 19.00 BMI Method:Stated General Appearance: moderate distress, other (Disheveled) HEENT: PERRL/EOMI, pharynx normal Neck: full range of motion, normal inspection Cardiovascular: normal peripheral pulses, regular rate, rhythm Respiratory: no respiratory distress, no accessory muscle use Gastrointestinal: normal bowel sounds, non tender, soft Elbow/Forearm: Right (4 cm laceration distal to the right antecubital joint and a little bit medial. Axillary tourniquet in place.), pain, swelling Wrist: Yes normal inspection, Yes no evidence of injury, Yes normal ROM Hand: laceration (Ecchymotic coloration and a flap laceration about 1 cm over the dorsum fifth MCP) Neurologic/Tendon: no evidence tendon injury, motor deficit, sensory deficit, no response to pain Neurologic/Psychiatric: alert, oriented x 3, other (Anxious, agitated and pain. Denies suicidal or homicidal intent. Denies hallucination) Skin: normal color, warm/dry Procedures/Interventions Wound Location: Upper Extremities Other Wound Location Medial and distal to the antecubital space on the volar surface Wound Length (cm): 4 Wound's Depth, Shape: into muscle, linear Wound Explored: no foreign body removed Irrigated w/ Saline (ccs): 500 Betadine Prep?: Yes (Chlorhexidine followed by sterile saline) Anesthesia: Lidocaine w/ Epi (2%) Volume Anesthetic (ccs): 5 Wound Debrided: minimal Suture: Vicryl Suture Size: 4-0 Number of Sutures: 2 Layer Closure?: 2 Number Deep Layer Sutures: 2 Sterile Dressing Applied?: Yes Progress Wound was thoroughly explored and cleaned and no large contaminants were found. The fascial layer was reapproximated with 2 simple interrupted sutures using 4-0 Vicryl. We then closed the outer skin using 6 donald. Patient tolerated the procedure well. Sterile clean gauze dressing over triple antibiotic ointment was held in place with Coban. Wound Location: Upper Extremities Other Wound Location Right hand dorsum of the fifth MCP Wound Length (cm): 1 Wound's Depth, Shape: linear, flap Wound Explored: no foreign body removed Irrigated w/ Saline (ccs): 50 Betadine Prep?: Yes (Chlorhexidine) Other Closure Supply: Wound Adhesive Progress After the wound was thoroughly cleaned with sterile saline and chlorhexidine it was rinsed with normal saline. No foreign debris was found inside the flap. A small amount of wound adhesive cyanoacrylate close the wound. Progress/Results/Core Measures Results/Orders Lab Results Laboratory Tests Test 03/01/21 22:30 03/01/21 23:05 Range/Units White Blood Count 7.6 4.3-11.0 10^3/uL Red Blood Count 3.89 L 4.30-5.52 10^6/uL Hemoglobin 11.6 L 13.3-17.7 g/dL Hematocrit 35 L 40-54 % Mean Corpuscular Volume 91 80-99 fL Mean Corpuscular Hemoglobin 30 25-34 pg Mean Corpuscular Hemoglobin Concent 33 32-36 g/dL Red Cell Distribution Width 13.9 10.0-14.5 % Platelet Count 347 130-400 10^3/uL Mean Platelet Volume 9.5 9.0-12.2 fL Immature Granulocyte % (Auto) 1 % Neutrophils (%) (Auto) 45 42-75 % Lymphocytes (%) (Auto) 47 H 12-44 % Monocytes (%) (Auto) 5 0-12 % Eosinophils (%) (Auto) 2 0-10 % Basophils (%) (Auto) 1 0-10 % Neutrophils # (Auto) 3.4 1.8-7.8 10^3/uL Lymphocytes # (Auto) 3.5 1.0-4.0 10^3/uL Monocytes # (Auto) 0.4 0.0-1.0 10^3/uL Eosinophils # (Auto) 0.2 0.0-0.3 10^3/uL Basophils # (Auto) 0.1 0.0-0.1 10^3/uL Immature Granulocyte # (Auto) 0.1 0.0-0.1 10^3/uL Sodium Level 143 135-145 MMOL/L Potassium Level 3.7 3.6-5.0 MMOL/L Chloride Level 112 H 98-107 MMOL/L Carbon Dioxide Level 19 L 21-32 MMOL/L Anion Gap 12 5-14 MMOL/L Blood Urea Nitrogen 7 7-18 MG/DL Creatinine 0.75 0.60-1.30 MG/DL Estimat Glomerular Filtration Rate > 60 BUN/Creatinine Ratio 9 Glucose Level 115 H 70-105 MG/DL Calcium Level 7.7 L 8.5-10.1 MG/DL Corrected Calcium 7.6 L 8.5-10.1 MG/DL Total Bilirubin 0.2 0.1-1.0 MG/DL Aspartate Amino Transf (AST/SGOT) 14 5-34 U/L Alanine Aminotransferase (ALT/SGPT) 15 0-55 U/L Alkaline Phosphatase 69 40-136 U/L Total Protein 6.3 L 6.4-8.2 GM/DL Albumin 4.1 3.2-4.5 GM/DL Serum Alcohol 204 H <10 MG/DL Urine Color YELLOW Urine Clarity CLEAR Urine pH 6.0 5-9 Urine Specific [place] 1.010 L 1.016-1.022 Urine Protein NEGATIVE NEGATIVE Urine Glucose (UA) NEGATIVE NEGATIVE Urine Ketones NEGATIVE NEGATIVE Urine Nitrite NEGATIVE NEGATIVE Urine Bilirubin NEGATIVE NEGATIVE Urine Urobilinogen 0.2 < = 1.0 MG/DL Urine Leukocyte Esterase NEGATIVE NEGATIVE Urine RBC (Auto) NEGATIVE NEGATIVE Urine RBC NONE /HPF Urine WBC NONE /HPF Urine Squamous Epithelial Cells NONE /HPF Urine Crystals NONE /LPF Urine Bacteria NEGATIVE /HPF Urine Casts NONE /LPF Urine Mucus NEGATIVE /LPF Urine Culture Indicated NO Urine Opiates Screen NEGATIVE NEGATIVE Urine Oxycodone Screen NEGATIVE NEGATIVE Urine Methadone Screen NEGATIVE NEGATIVE Urine Propoxyphene Screen NEGATIVE NEGATIVE Urine Barbiturates Screen NEGATIVE NEGATIVE Ur Tricyclic Antidepressants Screen NEGATIVE NEGATIVE Urine Phencyclidine Screen NEGATIVE NEGATIVE Urine Amphetamines Screen NEGATIVE NEGATIVE Urine Methamphetamines Screen NEGATIVE NEGATIVE Urine Benzodiazepines Screen NEGATIVE NEGATIVE Urine Cocaine Screen NEGATIVE NEGATIVE Urine Cannabinoids Screen NEGATIVE NEGATIVE My Orders Orders - DEBBIE FLORES Fentanyl Inj (Sublimaze Injection) (03/01/21 22:30) Cbc With Automated Diff (03/01/21 22:19) Comprehensive Metabolic Panel (03/01/21 22:19) Type And Screen (03/01/21 22:19) Ua Culture If Indicated (03/01/21 22:19) Drug Screen Stat (Urine) (03/01/21 22:19) Alcohol (03/01/21 22:19) Fentanyl Inj (Sublimaze Injection) (03/01/21 22:14) Ketamine Syringe (Ed Only) (Ketamine Syr (03/01/21 22:19) Lidocaine/Epi 2% 1:100,000 (Xylocaine/Ep (03/01/21 22:25) Fentanyl Inj (Sublimaze Injection) (03/01/21 23:00) Dipht,Pertuss(Acell),Tet Adult (Boostrix (03/01/21 23:00) Lidocaine/Epi 2% 1:100,000 (Xylocaine/Ep (03/01/21 23:00) Elbow, Right, 3 Views (03/01/21 23:04) Medications Given in ED Current Medications Medications Dose Ordered Sig/Aron Route Start Time Stop Time Status Last Admin Dose Admin Diphtheria/ Tetanus/Acell Pertussis 0.5 ml ONCE ONCE IM 03/01/21 23:00 03/01/21 23:01 DC 03/01/21 23:07 0.5 ML Fentanyl Citrate 50 mcg ONCE ONCE IVP 03/01/21 22:30 03/01/21 22:31 DC 03/01/21 22:20 50 MCG Fentanyl Citrate 50 mcg ONCE ONCE IVP 03/01/21 23:00 03/01/21 23:01 DC 03/01/21 22:27 50 MCG Lidocaine/ Epinephrine 20 ml ONCE ONCE INJ 03/01/21 23:00 03/01/21 23:01 DC 03/01/21 22:45 20 ML Vital Signs/I&O 03/01/21 22:16 Temp 36.6 Pulse 93 Resp 17 B/P (MAP) 126/105 (112) Pulse Ox 99 O2 Delivery Room Air Blood Pressure Mean: 112 Progress Progress Note : Time: 22:[address] Escudero in the ER at 2225 and tourniquet released at 2226. Tourniquet on time at 2130. Patient began feeling and movement in his lower extremity. Hemostatic wounds. Tetanus vaccine given and will put him on antibiotics o utpatient. Patient repeatedly states this is an accident and while he has had suicidal ideation in the past he reiterated that it had nothing to do with what happened tonight. Diagnostic Imaging Diagonstic Imaging: Xray Plain Films/CT/US/NM/MRI: other (Right elbow) Comments No foreign objects on 3 view x-ray. No acute osseous abnormality [place] noted superficially Reviewed: Reviewed by Me Departure Impression Primary Impression: Fall Qualified Codes: W19.XXXA - Unspecified fall, initial encounter Additional Impression: Laceration Disposition: HOME, SELF-CARE Condition: Stable Departure-Patient Inst. Decision time for Depature: 23:36 Referrals: DELMAR ESCUDERO DO NO,LOCAL PHYSICIAN (PCP) Primary Care Physician Patient Instructions: Laceration Repair With [place] (DC) Add. Discharge Instructions: Keep the wound clean with regular soap and water, body wash or shampoo only. You do not need to use antibacterial soap specifically. Do not use hydrogen peroxide, alcohol, chlorhexidine or iodine as this will slow wound healing. It is acceptable to put a little Vaseline or triple antibiotic ointment over the donald while replacing the gauze dressing daily. Replace the gauze dressing more frequently if it becomes soiled. Do not submerse the arm under water until the donald are out. Showers are acceptable however. Tylenol 1000 mg every 8 hours as necessary for pain. Ibuprofen 800 mg every 8 hours as necessary for pain. Cephalexin 1 tablet 3 times a day for the next week to prevent infections. The sutures inside your arm will dissolve and go away on their own over the next several weeks. Return to the ER in 7 to 10 days to have the donald removed and your wound reexamined. Return to your doctor or the ER sooner if you are having signs of an infection such as increasing pain, fever, redness, swelling or purulent discharge from the wound. Hydrocodone 1 tablet every 6 hours as necessary for severe, intractable pain despite these other options. All discharge instructions reviewed with patient and/or family. Voiced understanding. Scripts Cephalexin (Cephalexin) 500 Mg Tablet 500 MG PO TID for 7 Days, #21 TAB 0 Refills Prov: DEBBIE FLORES 03/01/21 Hydrocodone/Acetaminophen (Hydrocodone-Acetamin 5-325 mg) 1 Each Tablet 1 TAB PO Q6H PRN for PAIN-MODERATE (5-7), #8 TAB 0 Refills Prov: DEBBIE FLORES 03/01/21 Work/School Note: Work Release Form Date Seen in the Emergency Department: Mar 01, 2021 Return to Work: Mar 02, 2021 Restrictions: Need Release from Doctor Other Restrictions Listed Below: Right arm in a sling except to bathe until 03/08/2021. Keep wound clean/dry Copy Copies To 1: DELMAR ESCUDERO TITUS J Mar 01, 2021 22:59
[2021-03-01] MEDS ORDERED: LIDOCAINE/EPI 2% 1:100,00 (XYLOCAINE) 20 ML VIAL INJ ONE (23:00)
[2021-03-01] MEDS ORDERED: TETANUS,DIPTH,PERTUSS P/F (BOOSTRIX) 0.5 ML VIAL IM ONE (23:00)
[2021-03-01 23:12] LABS: BILIRUBIN,URINE NEGATIVE (NEGATIVE); CLARITY,URINE CLEAR; COLOR,URINE YELLOW; GLUCOSE, URINE (UA) NEGATIVE (NEGATIVE); KETONES,URINE NEGATIVE (NEGATIVE); LEUKOCYTE ESTERASE ,URINE NEGATIVE (NEGATIVE); NITRITE,URINE NEGATIVE (NEGATIVE); PROTEIN,URINE NEGATIVE (NEGATIVE)
[2021-03-01 23:15] LABS: BACTERIA,URINE NEGATIVE /HPF
[2021-03-01 23:22] LABS: AMPHETAMINE SCREEN, URINE NEGATIVE (NEGATIVE); BARBITURATE SCREEN URINE NEGATIVE (NEGATIVE); BENZODIAZEPINES SCREEN URINE NEGATIVE (NEGATIVE); CANNABINOID SCREEN, URINE NEGATIVE (NEGATIVE); COCAINE SCREEN URINE NEGATIVE (NEGATIVE); METHADONE STAT NEGATIVE (NEGATIVE); METHAMPHETAMINE SCREEN URINE S NEGATIVE (NEGATIVE); OPIATE SCREEN URINE NEGATIVE (NEGATIVE); OXYCODONE STAT NEGATIVE (NEGATIVE); PROPOXYPHENE STAT NEGATIVE (NEGATIVE); TRICYCLIC ANTIDEPRESSANTS SCRE NEGATIVE (NEGATIVE)
[2021-03-01] MEDS ORDERED: CEPH500T PO (23:39)
[2021-03-01] MEDS ORDERED: ACHD5005 PO (23:39)
[2021-03-02 00:03] VITALS: BP 97/57
--- NOTE | 2021-03-02 05:35 | Diagnostic Imaging Report ---
Right elbow at 1123 hours. INDICATION: Laceration. 3 views were obtained. There are no prior studies available for comparison. FINDINGS: By history, the patient has suffered a laceration to the volar aspect of the proximal forearm. There are skin donald in this region. There is no other radiopaque foreign body identified, however. There is no fracture or dislocation or acute bony abnormality evident. The posterior fat-pad is not elevated. The soft tissues are otherwise unremarkable. IMPRESSION: There are posttraumatic changes involving the soft tissues of the volar aspect of the proximal forearm. There is no evidence for radiopaque foreign body or for an acute bony abnormality, however. Dictated by: Dictated on workstation # [id number]
== END 2021-03-02 00:50 | disposition home or self-care (01) ==
LOC: EDUNIT# 22:14 → ER 22:16
DX: S61.216A Laceration without foreign body of right little finger without damage to nail, initial encounter (principal); S50.811A Abrasion of right forearm, initial encounter; F10.129 Alcohol abuse with intoxication, unspecified; F17.210 Nicotine dependence, cigarettes, uncomplicated; Z23 Encounter for immunization; Y90.7 Blood alcohol level of 200-239 mg/100 ml; W13.4XXA Fall from, out of or through window, initial encounter
CPT/HCPCS: 73080; 80053; 80306; 81000; 85025; 86850; 86900; 86901; 90471; 96374; 99284; A4565; G0480; 36415; 80320; 90715

== ENCOUNTER 2021-05-24 16:21 | Emergency (ER) | payer SELFPAY ==
[~2021-05-24] VITALS: Ht 170 cm; Wt 55.0 kg
[~2021-05-24 16:21] MED LIST changes: +ACHD5005 PO; +CEPH500T PO; -fentaNYL INJ 100 MCG/2 ML AMP ONE
[2021-05-24 16:27] VITALS: BP 108/59
--- NOTE | 2021-05-24 16:47 | ED EENT ---
History of Present Illness General Chief Complaint: Dental Problems/Pain Stated Complaint: TOOTH PAIN Nursing Triage Note: LEFT LOWER SIDE DENTAL PAIN/WISDOM TOOTH HAS LARGE DENTAL CARIES IN OTHER PLACES. Source: patient History of Present Illness Date Seen by Provider: May 24, 2021 Time Seen by Provider: 16:24 Initial Comments 20 yo male presenting with complaint of sudden onset of pain in left lower wisdom tooth. 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 He has had chronic issues with his teeth. He states he had paid a dentist in [place] and front the of $350 to be told by the dentist that he was "too young to be making decisions about pulling his teeth". He has no fever or chills. He denies any trauma to the tooth to make the pain come on suddenly. He does have several widespread areas of decay and multiple broken teeth and exposed roots. He has swelling to the gums around the left lower posterior wisdom tooth where he has the pain. There is no obvious drainage. Timing/Duration: abrupt Severity: severe Location: dental Prearrival Treatment: no prearrival treatment Associated Symptoms: No change in hearing, No cough, No drooling, No ear drainage, No facial pain/swelling, No fever, No malaise, No nasal congestio n/drainage, No poor fluid intake, No poor solids intake, No sinus infection, No sore throat; tooth pain; No voice change Allergies and Home Medications Allergies Coded Allergies: No Known Drug Allergies (Unverified , 03/19/19) Home Medications Amoxicillin/Potassium Clav 1 Each Tablet, 1 EACH PO BID Prescribed by: DEBBIE FLORES on 02/06/212023 Amoxicillin/Potassium Clav 1 Each Tablet, 1 EACH PO BID Prescribed by: PEREZ AGUAYO on 05/24/21 1653 Cephalexin 500 Mg Tablet, 500 MG PO TID Prescribed by: DEBBIE FLORES on 03/01/21 2339 Fexofenadine/Pseudoephedrine 1 Each Tab.er.12h, 1 EACH PO BID Prescribed by: EVANGELINA ADAMSON on 01/21/21 1309 Hydrocodone/Acetaminophen 1 Each Tablet, 1 TAB PO Q6H PRN for PAIN-MODERATE (5- 7) Prescribed by: DEBBIE FLORES on 03/01/21 2340 Hydrocodone/Acetaminophen 1 Each Tablet, 1 TAB PO Q6H PRN for PAIN-SEVERE (8-10) Prescribed by: PEREZ AGUAYO on 05/24/21 1654 Naproxen 500 Mg Tablet, 500 MG PO Q12H Prescribed by: JENSEN REBOLLAR on 05/06/20 1545 Penicillin V Potassium 250 Mg Tablet, 250 MG PO QID Prescribed by: JENSEN REBOLLAR on 05/06/20 1545 Tramadol HCl 50 Mg Tablet, 100 MG PO Q8H Prescribed by: EVANGELINA ADAMSON on 01/21/21 1309 Patient Home Medication List Home Medication List Reviewed: Yes Review of Systems Review of Systems Constitutional: no symptoms reported Eyes: No Symptoms Reported Ears: No Symptoms Reported Nose: no symptoms reported Mouth: see HPI Throat: no symptoms reported Respiratory: no symptoms reported Cardiovascular: no symptoms reported Gastrointestinal: no symptoms reported Musculoskeletal: no symptoms reported Skin: no symptoms reported Neurological: Anxiety Past Gshizmz-Jljxtt-Pywjjf Hx Patient Social History Tobacco Use?: Yes Tobacco type used: Cigarettes Smoking Status: Current Everyday Smoker Smokeless Tobacco Frequency: Never a User Use of E-Cig and/or Vaping dev: No Substance use?: No Alcohol Use?: No Pt feels they are or have been: No Immunizations Up To Date Tetanus Booster (TDap): Unknown Seasonal Allergies Seasonal Allergies: No Past Medical History Surgeries: No Respiratory: No Cardiac: No Neurological: No Genitourinary: No Gastrointestinal: Yes Gastroesophageal Reflux Musculoskeletal: No Endocrine: No HEENT: No Cancer: No Psychosocial: Yes Depression Integumentary: No Blood Disorders: No Family Medical History Diabetes, Hypertension Physical Exam Vital Signs Vital Signs - First Documented 05/24/21 16:27 Temp 36.6 Pulse 82 Resp 18 B/P (MAP) 108/59 (75) Pulse Ox 99 O2 Delivery Room Air Height, Weight, BMI Height: 5'7.00" Weight: 120lbs. 0oz. 54.623739rp; 19.00 BMI Method:Stated General Appearance: WD/WN, mild distress, thin Eyes: bilateral eye PERRL, bilateral eye EOMI Mouth/Throat: pharynx normal, dental tenderness, other (multiple widespread areas of dental decay and swelling to gums around left lower posterior wisdom tooth) Neck: non-tender, full range of motion, supple, normal inspection Cardiovascular: normal peripheral pulses, regular rate, rhythm Respiratory: chest non-tender, lungs clear Neurologic/Psychiatric: alert, oriented x 3 Skin: normal color, warm/dry Procedures/Interventions Dental Procedures: dental blo Progress Periodontal dental block placed by infiltrating Bupivicaine/epinephrine 2 mL into the gums around left lower wisdom tooth. He had immediate improvement in his pain and no immediate complication from the procedure. Progress/Results/Core Measures Results/Orders Vital Signs/I&O 05/24/21 16:27 Temp 36.6 Pulse 82 Resp 18 B/P (MAP) 108/59 (75) Pulse Ox 99 O2 Delivery Room Air Blood Pressure Mean: 75 Progress Progress Note : Progress Note verbal consent for dental block. Then using Bupivicaine with epinephrine from [facility] a total of 2 mL of anesthetic was infiltrated in the gums by the tooth for a periodontal block. Pt reports immediate improvement in pain. He tolerated procedure well without immediate complications. start on augmentin and hydrocodone and encouraged to take Ibuprofen OTC. Follow up with dentist from [facility]. Departure Impression Primary Impression: Pain due to dental caries Disposition: HOME, SELF-CARE Condition: Stable Departure-Patient Inst. Decision time for Depature: 16:46 Referrals: NO,LOCAL PHYSICIAN (PCP) Primary Care Physician [facility] Patient Instructions: Dental Pain ED Add. Discharge Instructions: Follow up with Dentist as soon as possible for definitive care of your teeth. Call [facility] clinic at [phone] and ask for dental clinic and they should be able to help you get in touch with dental clinic and set up appointment. Take antibiotics to help treat for possible infection and pain medicine along with anti-inflammatories for pain and swelling. All discharge instructions reviewed with patient and/or family. Voiced und erstanding. Scripts Hydrocodone/Acetaminophen (Hydrocodone-Acetamin 5-325 mg) 1 Each Tablet 1 TAB PO Q6H PRN for PAIN-SEVERE (8-10) for 3 Days, #12 TAB 0 Refills Prov: PEREZ AGUAYO MD 05/24/21 Amoxicillin/Potassium Clav (Amox Tr-K Clv 875-125 mg Tab) 1 Each Tablet 1 EACH PO BID for dental pain/infection for 7 Days, #14 TAB 0 Refills Prov: PEREZ AGUAYO MD 05/24/21 PEREZ AGUAYO MD May 24, 2021 16:47
[2021-05-24] MEDS ORDERED: AMOX1TAB12 PO (16:53)
[2021-05-24] MEDS ORDERED: ACHD5005 PO (16:53)
== END 2021-05-24 17:00 | disposition home or self-care (01) ==
LOC: EDUNIT# 16:21 → ER FS 16:22
DX: K02.9 Dental caries, unspecified (principal); F17.210 Nicotine dependence, cigarettes, uncomplicated
CPT/HCPCS: 99282

== ENCOUNTER 2021-06-30 11:37 | Emergency (ER) | payer SELFPAY ==
[~2021-06-30] VITALS: Ht 170 cm; Wt 55.0 kg
[~2021-06-30 11:37] MED LIST changes: +AMOX1TAB12 PO
[2021-06-30 11:42] VITALS: BP 137/93
[2021-06-30] MEDS ORDERED: oxyCODONE/APAP 5/325MG (PERCOCET 5) TABLET PO ONE (11:45)
[2021-06-30] MEDS ORDERED: IBUPROFEN 600 MG (MOTRIN) TAB PO ONE (11:45)
[2021-06-30] MEDS ORDERED: AUGMENTIN 875 MG TAB (AMOXICILLIN/CLAVULANATE) ONE (11:48)
--- NOTE | 2021-06-30 11:50 | ED EENT ---
History of Present Illness General Chief Complaint: Dental Problems/Pain Stated Complaint: DENTAL PAIN Source: patient Exam Limitations: no limitations History of Present Illness Date Seen by Provider: Jun 30, 2021 Time Seen by Provider: 11:45 Initial Comments Patient is a 21-year-old male who presents with right lower posterior wisdom tooth pain. Patient reports severe intense pain starting a few minutes prior to ED arrival. Pain radiates to his left ear. Pain is 10 out of 10 worse with palpation. States he has previously difficulty with teeth and has not had a chance to get them pulled. No trismus drooling, facial swelling voice hoarseness. No other symptoms or complaints. Timing/Duration: gradual Severity: severe Location: facial, dental Modifying Factors: Improves With Other Associated Symptoms: other Allergies and Home Medications Allergies Coded Allergies: No Known Drug Allergies (Unverified , 03/19/19) Home Medications Amoxicillin/Potassium Clav 1 Each Tablet, 1 EACH PO BID Prescribed by: DEBBIE FLORES on 02/06/212023 Amoxicillin/Potassium Clav 1 Each Tablet, 1 EACH PO BID Prescribed by: PEREZ AGUAYO on 05/24/21 1653 Cephalexin 500 Mg Tablet, 500 MG PO TID Prescribed by: DEBBIE FLORES on 03/01/21 2339 Fexofenadine/Pseudoephedrine 1 Each Tab.er.12h, 1 EACH PO BID Prescribed by: EVANGELINA ADAMSON on 01/21/21 1309 Hydrocodone/Acetaminophen 1 Each Tablet, 1 TAB PO Q6H PRN for PAIN-MODERATE (5- 7) Prescribed by: DEBBIE FLORES on 03/01/21 2340 Hydrocodone/Acetaminophen 1 Each Tablet, 1 TAB PO Q6H PRN for PAIN-SEVERE (8-10) Prescribed by: PEREZ AGUAYO on 05/24/21 1654 Naproxen 500 Mg Tablet, 500 MG PO Q12H Prescribed by: JENSEN REBOLLAR on 05/06/20 1545 Penicillin V Potassium 250 Mg Tablet, 250 MG PO QID Prescribed by: JENSEN REBOLLAR on 05/06/20 1545 Tramadol HCl 50 Mg Tablet, 100 MG PO Q8H Prescribed by: EVANGELINA ADAMSON on 01/21/21 1309 Patient Home Medication List Home Medication List Reviewed: Yes Review of Systems Review of Systems Constitutional: no symptoms reported Eyes: See HPI Ears: See HPI Nose: see HPI Throat: see HPI Past Uyesmvm-Rzghrz-Wlrvin Hx Immunizations Up To Date Tetanus Booster (TDap): Unknown Seasonal Allergies Seasonal Allergies: No Past Medical History Surgeries: No Respiratory: No Cardiac: No Neurological: No Genitourinary: No Gastrointestinal: Yes Gastroesophageal Reflux Musculoskeletal: No Endocrine: No HEENT: No Cancer: No Psychosocial: Yes Depression Integumentary: No Blood Disorders: No Family Medical History Diabetes, Hypertension Physical Exam Vital Signs Reviewed Height, Weight, BMI Height: 5'7.00" Weight: 120lbs. 0oz. 54.005938ho; 19.00 BMI Method:Stated General Appearance: severe distress Eyes: bilateral eye normal inspection, bilateral eye PERRL Ears: bilateral ear auricle normal Nose: normal inspection Mouth/Throat: other (Impacted left posterior lower wisdom tooth with dental erosion and tenderness. No appreciable soft tissue abscess) Procedures/Interventions Dental Procedures: dental blo Progress/Results/Core Measures Results/Orders My Orders Orders - EVANGELINA ADAMSON DO Oxycodone/Apap 5/325mg Tablet (Percocet (06/30/21 11:45) Amoxicillin/Clavulanate Tablet (Augmenti (06/30/21 18:00) Ibuprofen Tablet (Motrin Tablet) (06/30/21 11:45) Amoxicillin/Clavulanate Tablet (Augmenti (06/30/21 11:48) Medications Given in ED Current Medications Medications Dose Ordered Sig/Aron Route Start Time Stop Time Status Last Admin Dose Admin Ibuprofen 600 mg ONCE ONCE PO 06/30/21 11:45 06/30/21 11:46 DC 06/30/21 11:46 600 MG Oxycodone/ Acetaminophen 2 tab ONCE ONCE PO 06/30/21 11:45 06/30/21 11:46 DC 06/30/21 11:45 2 TAB Departure Communication (Admissions) Patient given first dose antibiotics along with all pain medications. He is instructed to contact her dentist to arrange for follow-up in the next 24 hours. Impression Primary Impression: Pain due to dental caries Disposition: 01 HOME, SELF-CARE Condition: Stable Departure-Patient Inst. Decision time for Depature: 12:00 Referrals: NO,LOCAL PHYSICIAN (PCP/Family) Primary Care Physician Patient Instructions: Dental Pain Add. Discharge Instructions: Please take medications as directed and contact your local dentist to arrange for follow-up appointment in the next 24 hours. All discharge instructions reviewed with patient and/or family. Voiced understanding. Scripts Penicillin V Potassium (Penicillin V Potassium) 500 Mg Tablet 500 MG PO QID, #40 TAB Prov: EVANGELINA ADAMSON DO 06/30/21 Oxycodone HCl/Acetaminophen (Percocet 5-325 mg Tablet) 1 Each Tablet 1 TAB PO Q4H for PAIN-MODERATE MDD 6 TABS for 7 Days, #10 TAB Prov: EVANGELINA ADAMSON DO 06/30/21 EVANGELINA ADAMSON DO Jun 30, 2021 11:50
[2021-06-30] MEDS ORDERED: OXYC1TAB87 PO (12:11)
[2021-06-30] MEDS ORDERED: PENI500T PO (12:11)
[2021-06-30] MEDS ORDERED: AUGMENTIN 875 MG TAB (AMOXICILLIN/CLAVULANATE) PO SCH (18:00)
== END 2021-06-30 12:18 | disposition home or self-care (01) ==
LOC: EDUNIT# 11:37 → ER FS 11:38
DX: K02.9 Dental caries, unspecified (principal)
CPT/HCPCS: 99283

== ENCOUNTER 2021-09-09 19:54 | Emergency (ER) | payer SELFPAY ==
[~2021-09-09 19:54] MED LIST changes: +OXYC1TAB87 PO; +PENI500T PO
== END 2021-09-09 20:03 | disposition left against medical advice (07) ==
LOC: EDUNIT# 19:54 → ER FS 19:55
DX: R43.9 Unspecified disturbances of smell and taste (principal)

== ENCOUNTER 2021-10-27 02:52 | Emergency (ER) | payer SELFPAY ==
[~2021-10-27] VITALS: Ht 170.1 cm; Wt 58.8 kg
[2021-10-27 02:57] VITALS: BP 109/69
[2021-10-27] MEDS ORDERED: oxyCODONE/APAP 5/325MG (PERCOCET 5) TABLET PO ONE (03:15)
[2021-10-27] MEDS ORDERED: AUGMENTIN 875 MG TAB (AMOXICILLIN/CLAVULANATE) ONE (03:15)
--- NOTE | 2021-10-27 03:18 | ED EENT ---
History of Present Illness General Chief Complaint: Dental Problems/Pain Stated Complaint: LT SIDE JAW PAIN Nursing Triage Note: Patient states that his lower left jaw began to hurt at approximately 2230 last night. Patient states that he has had dental infections prior. Patients face is swollen and swelling to the eyes is noted. Patient states that he took Tylenol for the pain and that his eyes are swollen from crying. Patient's whole face appears to be swollen. Patient doesn't complain of any shortness of breath or swelling/tingling in the throat. Patient does have a missing/broken tooth on the lower left side. Source: patient Exam Limitations: no limitations History of Present Illness Date Seen by Provider: Oct 27, 2021 Time Seen by Provider: 03:00 Initial Comments Patient is 21-year-old male with longstanding history of dental caries who presents with left mandible pain swelling starting approximately 5 hours prior to ED arrival. Patient states he took Tylenol prior to ED arrival with limited relief. No shortness of breath. No trismus, drooling or dysphonia. No other acute symptoms or complaints. Timing/Duration: gradual Severity: moderate Location: facial, dental Prearrival Treatment: other Modifying Factors: Improves With Other Associated Symptoms: other Allergies and Home Medications Allergies Coded Allergies: No Known Drug Allergies (Unverified , 03/19/19) Patient Home Medication List Home Medication List Reviewed: Yes Amoxicillin/Potassium Clav (Augmentin 875-125 Tablet) 1 Each Tablet, 1 EACH PO BID Prescribed by: DEBBIE FLORES on 02/06/212023 Amoxicillin/Potassium Clav (Amox Tr-K Clv 875-125 mg Tab) 1 Each Tablet, 1 EACH PO BID Prescribed by: PEREZ AGUAYO on 05/24/21 1653 Cephalexin (Cephalexin) 500 Mg Tablet, 500 MG PO TID Prescribed by: DEBBIE FLORES on 03/01/21 2339 Clindamycin HCl (Clindamycin HCl) 150 Mg Capsule, 300 MG PO QID Prescribed by: EVANGELINA ADAMSON on 10/27/21 0323 Last Action: New Order Fexofenadine/Pseudoephedrine (Priti-D 12 Hour Tablet) 1 Each Tab.er.12h, 1 EACH PO BID Prescribed by: EVANGELINA ADAMSON on 01/21/21 1309 Hydrocodone/Acetaminophen (Hydrocodone-Acetamin 5-325 mg) 1 Each Tablet, 1 TAB PO Q6H PRN for PAIN-MODERATE (5-7) Prescribed by: DEBBIE FLORES on 03/01/21 2340 Hydrocodone/Acetaminophen (Hydrocodone-Acetamin 5-325 mg) 1 Each Tablet, 1 TAB PO Q6H PRN for PAIN-SEVERE (8-10) Prescribed by: PEREZ AGUAYO on 05/24/21 1654 Naproxen (Naproxen) 500 Mg Tablet, 500 MG PO Q12H Prescribed by: JENSEN REBOLLAR on 05/06/20 1545 Oxycodone HCl/Acetaminophen (Percocet 5-325 mg Tablet) 1 Each Tablet, 1 TAB PO Q4H Prescribed by: EVANGELINA ADAMSON on 06/30/21 1212 Penicillin V Potassium (Penicillin V Potassium) 250 Mg Tablet, 250 MG PO QID Prescribed by: JENSEN REBOLLAR on 05/06/20 1545 Penicillin V Potassium (Penicillin V Potassium) 500 Mg Tablet, 500 MG PO QID Prescribed by: EVANGELINA ADAMSON on 06/30/21 1211 Tramadol HCl (Tramadol HCl) 50 Mg Tablet, 100 MG PO Q8H Prescribed by: EVANGELINA ADAMSON on 01/21/21 1309 Discontinued Medications Clindamycin HCl (Clindamycin HCl) 150 Mg Capsule, 300 MG PO QID Prescribed by: EVANGELINA ADAMSON on 10/27/21 0321 Last Action: Discontinued Tramadol HCl (Tramadol HCl) 50 Mg Tablet, 100 MG PO Q6H PRN for PAIN Prescribed by: EVANGELINA ADAMSON on 10/27/21 0321 Last Action: Discontinued Review of Systems Review of Systems Constitutional: see HPI Eyes: See HPI Ears: See HPI Nose: see HPI Mouth: see HPI Throat: see HPI Past Apoquvb-Usayrj-Mqyizo Hx Patient Social History Tobacco Use?: Yes Smoking Status: Current Everyday Smoker Substance use?: No Alcohol Use?: No Immunizations Up To Date Tetanus Booster (TDap): Unknown Seasonal Allergies Seasonal Allergies: No Past Medical History Surgeries: No Respiratory: No Cardiac: No Neurological: No Genitourinary: No Gastrointestinal: Yes Gastroesophageal Reflux Musculoskeletal: No Endocrine: No HEENT: No Cancer: No Psychosocial: Yes Depression Integumentary: No Blood Disorders: No Family Medical History Diabetes, Hypertension Physical Exam Vital Signs Vital Signs - First Documented 10/27/21 02:57 Temp 36.6 Pulse 116 Resp 16 B/P (MAP) 109/69 (82) Pulse Ox 99 O2 Delivery Room Air Height, Weight, BMI Height: 5'7.00" Weight: 120lbs. 0oz. 54.569573ai; 20.00 BMI Method:Stated General Appearance: moderate distress (Secondary to pain) Nose: normal inspection Mouth/Throat: dental tenderness, mandibular swelling (Left posterior); No pharynx tenderness, No voice changes; other (Widespread dental caries with erosion of left posterior lower molar) Neck: full range of motion, supple Procedures/Interventions Dental Procedures: dental blo Progress/Results/Core Measures Results/Orders My Orders Vital Signs/I&O Blood Pressure Mean: 82 Departure Communication (PCP) Pain medication and antibiotics given patient recommend to follow-up with dentist or walk-in clinic later this morning without fail Impression Primary Impression: Dental caries Disposition: HOME, SELF-CARE Condition: Stable Departure-Patient Inst. Decision time for Depature: 03:18 Referrals: NO,LOCAL PHYSICIAN (PCP/Family) Primary Care Physician Patient Instructions: Tooth Decay, Adult Add. Discharge Instructions: Please contact dentist of choice this morning for reevaluation. You may contact [facility] in [place] for information regarding reduced cost dental care. [phone] [facility] [place] [address] All discharge instructions reviewed with patient and/or family. Voiced understanding. Scripts Clindamycin HCl (Clindamycin HCl) 150 Mg Capsule 300 MG PO QID, #80 CAP Prov: EVANGELINA ADAMSON DO 10/27/21 EVANGELINA ADAMSON DO Oct 27, 2021 03:18
[2021-10-27] MEDS ORDERED: CLIN150C20 PO ×2 (03:21→03:23)
[2021-10-27] MEDS ORDERED: TRM50T PO (03:21)
[2021-10-27] MEDS ORDERED: AUGMENTIN 875 MG TAB (AMOXICILLIN/CLAVULANATE) PO SCH (08:00)
== END 2021-10-27 03:26 | disposition home or self-care (01) ==
LOC: EDUNIT# 02:52 → ER FS 02:54
DX: K02.9 Dental caries, unspecified (principal); F17.290 Nicotine dependence, other tobacco product, uncomplicated
CPT/HCPCS: 99283

== ENCOUNTER → 2021-11-02 | Emergency (ER) | payer SELFPAY ==
[~2021-11-02] VITALS: Ht 170 cm; Wt 130.0 kg
[~2021-11-02] MED LIST changes: +CLIN150C20 PO; +TRM50T PO
--- NOTE | 2021-11-02 16:24 | ED Integumentary General ---
General Stated Complaint: LT LEG LAC History of Present Illness Date Seen by Provider: Nov 02, 2021 Time Seen by Provider: 16:24 Initial Comments 21-year-old male presents with left mid thigh laceration. Patient was using a chain saw when it slipped and hit him in the leg. He has an approximate 3 inch laceration. It is superficial and does not go through the skin. He has multiple small abrasions/lacerations surrounding it. He is up-to-date on his tetanus. He reports he drank 3 or 4 shots for the pain in route. He does appear intoxicated. Allergies and Home Medications Allergies Coded Allergies: No Known Drug Allergies (Unverified , 03/19/19) Patient Home Medication List Home Medication List Reviewed: Yes Amoxicillin/Potassium Clav (Augmentin 875-125 Tablet) 1 Each Tablet, 1 EACH PO BID Prescribed by: DEBBIE FLORES on 02/06/212023 Amoxicillin/Potassium Clav (Amox Tr-K Clv 875-125 mg Tab) 1 Each Tablet, 1 EACH PO BID Prescribed by: PEREZ AGUAYO on 05/24/21 1653 Cephalexin (Cephalexin) 500 Mg Tablet, 500 MG PO TID Prescribed by: DEBBIE FLORES on 03/01/21 2339 Clindamycin HCl (Clindamycin HCl) 150 Mg Capsule, 300 MG PO QID Prescribed by: EVANGELINA ADAMSON on 10/27/21 0323 Fexofenadine/Pseudoephedrine (Priti-D 12 Hour Tablet) 1 Each Tab.er.12h, 1 EACH PO BID Prescribed by: EVANGELINA ADAMSON on 01/21/21 1309 Hydrocodone/Acetaminophen (Hydrocodone-Acetamin 5-325 mg) 1 Each Tablet, 1 TAB PO Q6H PRN for PAIN-MODERATE (5-7) Prescribed by: DEBBIE FLORES on 03/01/21 2340 Hydrocodone/Acetaminophen (Hydrocodone-Acetamin 5-325 mg) 1 Each Tablet, 1 TAB PO Q6H PRN for PAIN-SEVERE (8-10) Prescribed by: PEREZ AGUAYO on 05/24/21 1654 Naproxen (Naproxen) 500 Mg Tablet, 500 MG PO Q12H Prescribed by: JENSEN REBOLLAR on 05/06/20 1545 Oxycodone HCl/Acetaminophen (Percocet 5-325 mg Tablet) 1 Each Tablet, 1 TAB PO Q4H Prescribed by: EVANGELINA ADAMSON on 06/30/21 1212 Penicillin V Potassium (Penicillin V Potassium) 250 Mg Tablet, 250 MG PO QID Prescribed by: JENSEN REBOLLAR on 05/06/20 1545 Penicillin V Potassium (Penicillin V Potassium) 500 Mg Tablet, 500 MG PO QID Prescribed by: EVANGELINA ADAMSON on 06/30/21 1211 Tramadol HCl (Tramadol HCl) 50 Mg Tablet, 100 MG PO Q8H Prescribed by: EVANGELINA ADAMSON on 01/21/21 1309 Discontinued Medications Clindamycin HCl (Clindamycin HCl) 150 Mg Capsule, 300 MG PO QID Prescribed by: EVANGELINA ADAMSON on 10/27/21 0321 Tramadol HCl (Tramadol HCl) 50 Mg Tablet, 100 MG PO Q6H PRN for PAIN Prescribed by: EVANGELINA ADAMSON on 10/27/21 0321 Review of Systems Review of Systems Constitutional: no symptoms reported Respiratory: no symptoms reported Cardiovascular: no symptoms reported Gastrointestinal: no symptoms reported Genitourinary: no symptoms reported Musculoskeletal: see HPI Skin: see HPI Psychiatric/Neurological: No Symptoms Reported Endocrine: No Symptoms Reported Past Bsgarkb-Bcyxcf-Afhrst Hx Immunizations Up To Date Tetanus Booster (TDap): Unknown Seasonal Allergies Seasonal Allergies: No Past Medical History Surgeries: No Respiratory: No Cardiac: No Neurological: No Genitourinary: No Gastrointestinal: Yes Gastroesophageal Reflux Musculoskeletal: No Endocrine: No HEENT: No Cancer: No Psychosocial: Yes Depression Integumentary: No Blood Disorders: No Family Medical History Diabetes, Hypertension Physical Exam Vital Signs Vital Signs - First Documented 11/02/21 16:59 Temp 36.4 Pulse 110 Resp 24 B/P (MAP) 117/76 (90) Pulse Ox 97 Capillary Refill : General Appearance: mild distress HEENT: PERRL/EOMI Neck: full range of motion, supple Cardiovascular: normal peripheral pulses, regular rate, rhythm Respiratory: lungs clear, normal breath sounds Gastrointestinal: non tender, soft Extremities: normal range of motion Neurologic/Psychiatric: alert, other (Obviously intoxicated) Skin: other (An approximate 3 inch laceration over the left mid thigh with multiple smaller linear abrasions/nonsuturable lacerations) Skin Problem Character: linear Procedures/Interventions Dental Procedures: dental blo Wound Location: Lower Extremities Other Wound Location Left mid thigh Wound Length (cm): 7 Wound's Depth, Shape: linear, contused tissue Wound Explored: clean Betadine Prep?: Yes Anesthesia: 1% Lidocaine Volume Anesthetic (ccs): 10 Suture: Ethlion Suture Size: 4-0 Number of Sutures: 7 Patient tolerated well with no immediate complications, recommend he keep clean with warm soapy water, suture removal in approximately 10 to 14 days. Follow-up with a primary care provider as needed. Keep clean with sterile dressing Progress/Results/Core Measures Results/Orders Vital Signs/I&O 11/02/21 16:59 Temp 36.4 Pulse 110 Resp 24 B/P (MAP) 117/76 (90) Pulse Ox 97 Progress Progress Note : Progress Note Patient with 1 laceration was suturable with other small lacerations/abrasions. The laceration was through the skin but not into the muscle or subcutaneous tiss ue. Patient tolerated repair with no difficulty. I had a long discussion with him regarding keeping wound clean and management. Patient was stable and discharged home Departure Impression Primary Impression: Laceration of left thigh without complication Qualified Codes: S71.112A - Laceration without foreign body, left thigh, initial encounter Disposition: 01 HOME, SELF-CARE Condition: Stable Departure-Patient Inst. Referrals: NO,LOCAL PHYSICIAN (PCP/Family) Primary Care Physician Patient Instructions: Laceration Repair With Stitches ED Add. Discharge Instructions: Keep clean with warm soapy water Return to the ER in approximately 10 to 14 days for suture removal Keep covered with clean dressing Tylenol ibuprofen as needed for pain Do not submerge for approximately 48 hours PRATIK FERRIS DO Nov 02, 2021 16:24
[2021-11-02 16:59] VITALS: BP 117/76
== END ==
LOC: EDUNIT# 16:14 → ER FS 16:15
DX: S71.112A Laceration without foreign body, left thigh, initial encounter (principal); W22.8XXA Striking against or struck by other objects, initial encounter

== ENCOUNTER 2022-02-28 10:59 | Emergency (ER) | payer SELFPAY ==
[~2022-02-28] VITALS: Ht 154 cm; Wt 58.0 kg
--- NOTE | 2022-02-28 11:17 | ED EENT ---
History of Present Illness General Chief Complaint: Dental Problems/Pain Stated Complaint: DENTAL PAIN Source: patient, old records History of Present Illness Date Seen by Provider: Feb 28, 2022 Time Seen by Provider: 11:02 Initial Comments 21 yo male presenting with chronic, recurring dental pain that is worse on the left lower posterior teeth. He has had an appointment with the dentist in [place]. He felt that they had just told him to get all of his teeth pulled. He felt that he did not need all of his teeth pulled. He has not followed up since that visit. He does not have any other dental visits set up. He takes acetaminophen and ibuprofen to keep the pain at a tolerable level. In the last few days his pain has been worse. He denies any fever or chills. He has had no purulent drainage from the teeth. There has been no trauma to the teeth. Timing/Duration: gradual Severity: severe Location: dental Prearrival Treatment: over the counter meds Modifying Factors: Worse With Other (Chewing and eating food makes it worse) Associated Symptoms: No change in hearing, No cough, No drooling, No ear drainage, No facial pain/swelling, No fever, No malaise, No nasal congestion/drainage, No poor fluid intake, No poor solids intake, No sinus infection, No sore throat; tooth pain; No voice change Allergies and Home Medications Allergies Coded Allergies: No Known Drug Allergies (Unverified , 03/19/19) Patient Home Medication List Home Medication List Reviewed: Yes Amoxicillin (Amoxicillin) 500 Mg Capsule, 500 MG PO TID Prescribed by: PEREZ AGUAYO on 02/28/22 1123 Hydrocodone/Acetaminophen (Hydrocodone-Acetamin 5-325 mg) 1 Each Tablet, 1 TAB PO Q4H PRN for PAIN-SEVERE (8-10) Prescribed by: PEREZ AGUAYO on 02/28/22 1124 Discontinued Medications Amoxicillin/Potassium Clav (Augmentin 875-125 Tablet) 1 Each Tablet, 1 EACH PO BID Prescribed by: DEBBIE FLORES on 02/06/212023 Amoxicillin/Potassium Clav (Amox Tr-K Clv 875-125 mg Tab) 1 Each Tablet, 1 EACH PO BID Prescribed by: PEREZ AGUAYO on 05/24/21 1653 Cephalexin (Cephalexin) 500 Mg Tablet, 500 MG PO TID Prescribed by: DEBBIE FLORES on 03/01/21 2339 Clindamycin HCl (Clindamycin HCl) 150 Mg Capsule, 300 MG PO QID Prescribed by: EVANGELINA ADAMSON on 10/27/21 0323 Fexofenadine/Pseudoephedrine (Priti-D 12 Hour Tablet) 1 Each Tab.er.12h, 1 EACH PO BID Prescribed by: EVANGELINA ADAMSON on 01/21/21 1309 Hydrocodone/Acetaminophen (Hydrocodone-Acetamin 5-325 mg) 1 Each Tablet, 1 TAB PO Q6H PRN for PAIN-MODERATE (5-7) Prescribed by: DEBBIE FLORES on 03/01/21 2340 Hydrocodone/Acetaminophen (Hydrocodone-Acetamin 5-325 mg) 1 Each Tablet, 1 TAB PO Q6H PRN for PAIN-SEVERE (8-10) Prescribed by: PEREZ AGUAYO on 05/24/21 1654 Naproxen (Naproxen) 500 Mg Tablet, 500 MG PO Q12H Prescribed by: JENSEN REBOLLAR on 05/06/20 1545 Oxycodone HCl/Acetaminophen (Percocet 5-325 mg Tablet) 1 Each Tablet, 1 TAB PO Q4H Prescribed by: EVANGELINA ADAMSON on 06/30/21 1212 Penicillin V Potassium (Penicillin V Potassium) 250 Mg Tablet, 250 MG PO QID Prescribed by: JENSEN REBOLLAR on 05/06/20 1545 Penicillin V Potassium (Penicillin V Potassium) 500 Mg Tablet, 500 MG PO QID Prescribed by: EVANGELINA ADAMSON on 06/30/21 1211 Tramadol HCl (Tramadol HCl) 50 Mg Tablet, 100 MG PO Q8H Prescribed by: EVANGELINA ADAMSON on 01/21/21 1309 Review of Systems Review of Systems Constitutional: No chills, No fever Eyes: No Symptoms Reported Ears: No Symptoms Reported Nose: no symptoms reported Mouth: see HPI, pain, swelling; denies bloody discharge, denies clear discharge, denies purulent discharge, denies serosanguinous discharge Throat: no symptoms reported Respiratory: no symptoms reported Cardiovascular: no symptoms reported Gastrointestinal: no symptoms reported Musculoskeletal: no symptoms reported Skin: no symptoms reported Past Wjxmopr-Moskbm-Tcoqin Hx Immunizations Up To Date Tetanus Booster (TDap): Unknown Seasonal Allergies Seasonal Allergies: No Past Medical History Surgery/Hospitalization HX: Chronic dental pain and caries Surgeries: No Respiratory: No Cardiac: No Neurological: No Genitourinary: No Gastrointestinal: Yes Gastroesophageal Reflux Musculoskeletal: No Endocrine: No HEENT: No Cancer: No Psychosocial: Yes Depression Integumentary: No Blood Disorders: No Family Medical History Diabetes, Hypertension Physical Exam Vital Signs Vital Signs - First Documented 02/28/22 11:19 Temp 36.4 Pulse 104 Resp 16 B/P (MAP) 124/67 (86) Pulse Ox 99 O2 Delivery Room Air Height, Weight, BMI Height: 5'7.00" Weight: 120lbs. 0oz. 54.484621eg; 44.00 BMI Method:Stated General Appearance: WD/WN, no apparent distress Eyes: bilateral eye normal inspection, bilateral eye PERRL, bilateral eye EOMI Mouth/Throat: pharynx normal, dental tenderness, other (multiple caries and gum swelling, especially toward mandibular molars and wisdom teeth. teeth eroded to gumline on left posterior mandibular area) Neck: non-tender, full range of motion, supple, normal inspection Cardiovascular: normal peripheral pulses, regular rate, rhythm Respiratory: chest non-tender, lungs clear, normal breath sounds, no respiratory distress, no accessory muscle use Neurologic/Psychiatric: alert, oriented x 3 Skin: normal color, warm/dry Procedures/Interventions Dental Procedures: dental blo Suture Size: 4-0 Progress/Results/Core Measures Results/Orders Vital Signs/I&O 02/28/22 11:19 Temp 36.4 Pulse 104 Resp 16 B/P (MAP) 124/67 (86) Pulse Ox 99 O2 Delivery Room Air Progress Progress Note : Progress Note Stressed the importance of follow-up with a dentist for definitive care of his teeth. Will place him on a course of antibiotics and give a few pills of somet david stronger for pain studies not taking so many acetaminophen and ibuprofen pills. Encouraged to follow-up with [facility] clinic and establish care with a primary care provider for continued care as well. Departure Impression Primary Impression: Pain due to dental caries Disposition: HOME, SELF-CARE Condition: Stable Departure-Patient Inst. Decision time for Depature: 11:13 Referrals: NO,LOCAL PHYSICIAN (PCP) Primary Care Physician [facility] [phone] to get established with a primary care provider [facility] Patient Instructions: Tooth Decay ED, Dental Pain ED Add. Discharge Instructions: Take full course of antibiotics to treat for infection with teeth and cavities Use the stronger pain medicine to help when you have severe pain. Otherwise, continue with acetaminophen and ibuprofen for pain control. Follow up with dentist as soon as possible for definitive care of your teeth All discharge instructions reviewed with patient and/or family. Voiced understanding. Scripts Hydrocodone/Acetaminophen (Hydrocodone-Acetamin 5-325 mg) 1 Each Tablet 1 TAB PO Q4H PRN for PAIN-SEVERE (8-10) for 3 Days, #18 TAB 0 Refills Prov: PEREZ AGUAYO MD 02/28/22 Amoxicillin (Amoxicillin) 500 Mg Capsule 500 MG PO TID for dental pain/infection for 10 Days, #30 CAP 0 Refills Prov: PEREZ AGUAYO MD 02/28/22 PEREZ AGUAYO MD Feb 28, 2022 11:17
[2022-02-28] MEDS ORDERED: ACHD5005 PO ×2 (11:22→11:23)
[2022-02-28] MEDS ORDERED: AMOX500C2 PO ×2 (11:22→11:23)
[2022-02-28 11:30] VITALS: BP 133/74
== END 2022-02-28 11:30 | disposition home or self-care (01) ==
LOC: EDUNIT# 10:59 → ER FS 11:04
DX: K02.9 Dental caries, unspecified (principal)
CPT/HCPCS: 99282

== ENCOUNTER 2023-03-20 02:14 | Emergency (ER) | payer SELFPAY ==
[~2023-03-20] VITALS: Ht 170 cm; Wt 54.4 kg
[~2023-03-20 02:14] MED LIST changes: +AMOX500C2 PO
[2023-03-20] MEDS ORDERED: RX-NEO/POLYB/HC OTIC (CORTISPORIN) SUSP 10 ML BTL OT STA (02:25)
--- NOTE | 2023-03-20 02:31 | ED EENT ---
History of Present Illness General Chief Complaint: Ear Problems Stated Complaint: FOREIGN BODY IN EAR Source: patient, EMS Exam Limitations: no limitations History of Present Illness Date Seen by Provider: March 20, 2023 Time Seen by Provider: 02:15 Initial Comments 22-year-old male with no pertinent past medical history coming in because he felt a bug crawl in his left ear and he cannot get it out. Happened shortly prior to arrival. Came via EMS. Is otherwise denying any other acute complaints. He is up-to-date on tetanus. He is otherwise denying any other acute complaints. Allergies and Home Medications Allergies Coded Allergies: No Known Drug Allergies (Unverified , 03/19/19) Patient Home Medication List Home Medication List Reviewed: Yes Amoxicillin (Amoxicillin) 500 Mg Capsule, 500 MG PO TID Prescribed by: PEREZ AGUAYO on 02/28/22 1123 Hydrocodone/Acetaminophen (Hydrocodone-Acetamin 5-325 mg) 1 Each Tablet, 1 TAB PO Q4H PRN for PAIN-SEVERE (8-10) Prescribed by: PEREZ AGUAYO on 02/28/22 1124 Review of Systems Review of Systems Constitutional: No fever Eyes: No Symptoms Reported Ears: See HPI Nose: no symptoms reported Mouth: no symptoms reported Throat: no symptoms reported Respiratory: no symptoms reported Past Dcibnie-Lyrsnk-Xwbzap Hx Immunizations Up To Date Tetanus Booster (TDap): Unknown First/Initial COVID19 Vaccinat: no Second COVID19 Vaccination Trace: no Seasonal Allergies Seasonal Allergies: No Past Medical History Surgery/Hospitalization HX: Chronic dental pain and caries Surgeries: No Respiratory: No Cardiac: No Neurological: No Genitourinary: No Gastrointestinal: Yes Gastroesophageal Reflux Musculoskeletal: No Endocrine: No HEENT: No Cancer: No Psychosocial: Yes Depression Integumentary: No Blood Disorders: No Family Medical History Diabetes, Hypertension Physical Exam Height, Weight, BMI Height: 5'7.00" Weight: 120lbs. 0oz. [id number]; 24.00 BMI Method:Stated General Appearance: WD/WN, mild distress Eyes: bilateral eye normal inspection Ears: right ear auricle normal, right ear canal normal, right ear TM normal; left ear other (There is a bug in his left ear) Nose: normal inspection Mouth/Throat: normal mouth inspection, pharynx normal Neck: non-tender, full range of motion, supple, normal inspection Cardiovascular: regular rate, rhythm Respiratory: no respiratory distress Gastrointestinal: soft Neurologic/Psychiatric: alert, normal mood/affect Skin: normal color, warm/dry Procedures/Interventions Dental Procedures: dental blo Suture Size: 4-0 Progress Under the guidance of the otoscope, 3 cc of 1% lidocaine was instilled into the ear to kill the insect. Afterwards it was sucked out with a William suction without issue. Repeat exam showing small scratch on his external auditory canal but normal tympanic membrane Progress/Results/Core Measures Results/Orders My Orders Orders - MORELIA TAMAYO MD Rx-Scott/Poly/Hc Otic Susp (Rx-Cortisporin (03/20/23 02:25) Progress Progress Note : Progress Note 22-year-old male with above history coming in feeling like there is an insect in his left ear. ABCs were intact and vitals were stable on presentation. Physical exam does indeed show an insect in his left ear. An insect was killed with 1% lidocaine drops and it was pulled out with suction in its entirety. Repeat exam showing a normal tympanic membrane but a small scratch to his external auditory canal. He will be given antibiotic drops for his ear for the scratch. I believe he is otherwise stable for discharge with outpatient follow- up. He was sent home with strict return precautions. Departure Impression Primary Impression: Foreign body in ear Qualified Codes: T16.2XXA - Foreign body in left ear, initial encounter Disposition: 01 HOME, SELF-CARE Condition: Improved Departure-Patient Inst. Decision time for Depature: 02:35 Referrals: NO,LOCAL PHYSICIAN (PCP/Family) Primary Care Physician Patient Instructions: Foreign Body in Ear Add. Discharge Instructions: Put 4 drops of the antibiotic ointment in that ear 3 times a day for the next week. This should help prevent any infection. If you have any issues, follow- up with your regular doctor. Work/School Note: Work Release Form Date Seen in the Emergency Department: March 20, 2023 Return to Work: March 21, 2023 Restrictions: No Restrictions MORELIA TAMAYO MD March 20, 2023 02:31
[2023-03-20 02:35] VITALS: BP 119/83
== END 2023-03-20 02:35 | disposition home or self-care (01) ==
LOC: EDUNIT# 02:14 → ER FS 02:16
DX: T16.2XXA Foreign body in left ear, initial encounter (principal); Z28.310 Unvaccinated for COVID-19; X58.XXXA Exposure to other specified factors, initial encounter
CPT/HCPCS: 99283